=== PATIENT | male | born 1965 | race Caucasian/White ===

== ENCOUNTER 2025-02-07 19:53 | Emergency (ER) | payer OTHER, SELFPAY ==
--- NOTE | ~2025-02-07 | XR_ITS ---
Left elbow Technique: AP, oblique, and lateral views were obtained. Clinical History: Pain Findings: No acute fracture or dislocation is seen. Osseous alignment is anatomic. Joint spaces are p reserved. There is no displacement of the fat pads, and no evidence of joint effusion. There is exten sive subcutaneous soft tissue edema, especially posteriorly. Impression: Diffuse soft tissue edema, especially posteriorly. No osseous or articular abnormality. Reviewed, dictated and finalized at location M. Impression: Diffuse soft tissue edema, especially posteriorly. No osseous or articular abnormality.
--- OUTSIDE RECORDS SUMMARY | 2025-02-07 19:55 | XMS_ITS | Clinical Summary ---
Author Organization [employer] [id number] [facility] Address [address] [place] [address] Care Team Providers Care Mercury Washer Name Role Phone Unavailable Primary Care Provider Unavailabl e Allergies No known active allergies Medications irbesartan (AVAPRO) 150 mg tablet Take 150 mg by mouth daily. Active atorvastatin (LIPITOR) 10 mg tablet Take 10 mg by mouth daily. Active doxycycline hyclate (VIBRAMYCIN) 50 mg Capsule Take 50 mg by mouth daily. Active Social History Tobacco Use Types Packs/Day Years Used Date Smoking Tobacco: Never Smokeless Tobacco: Current Chew Alcohol Use Standard Drinks/Week Comments Yes 0 (1 standard drink = 0.6 oz pur e alcohol) 2 beers daily Sex and Gender Information Value Date Recorded Sex Assigned at Not on file Legal Sex Male 11:15 PM CDT Gender Identity Not on file Sexual Orientation Not on file Last Filed Vital Signs Vital Sign Reading Time Taken Comments Blood Pressure 148/102 05/24/2022 2:45 PM CDT Pulse 57 05/24/2022 2:45 PM CDT Temperature 36.6 C (97.9 F) 05/24/2022 2:28 PM CDT Respiratory Rate 17 05/24/2022 2:45 PM CDT Oxygen Saturation 99% 05/24/2022 2:45 PM CDT Inhaled Oxygen Concentration - - Weight 78.5 kg (173 lb) 05/24/2022 1:37 PM CDT Height 170.2 cm (5' 7 ) 05/16/2022 8:28 AM CDT Body Mass Index 27.1 05/16/2022 8:28 AM CDT Plan of Treatment Health Maintenance Due Date Last Done Comments HEPATITIS B VACCINES (1 of 3 - 19+ 3-dose series) 1984 10/27/2000, 06/09/2000, 04/25/2000 DTAP/TDAP/TD VACCINES (1 - Tdap) 04/05/2009 04/04/20 09 FIT-DNA Q 3 years 2010 FIT/FOBT Q 1 year 2010 Flex Sig/CT Colonography Q 5 years 2010 ZOSTER VACCINE (1 of 2) 2015 INFLUENZA VACCINE (#1) 2024 COLORECTAL SCREENING 06/07/2029 06/07/2022, 05/24/2022, 05/24/2022, Additional history exists Colorectal Cancer Screening 06/07/2029 Procedures Procedure Name Priority Date/Time Associated Diagnosis Comments COLONOSCOPY REPORT 06/07/2022 1: 58 PM CDT from Last 3 Months or Most Recently Relevant to Health Maintenance Results * COLONOSCOPY REPORT (06/07/2022 1:58 PM CDT) Narrative Procedure Note Rigoberto Gray MD - 06/07/2022 1:58 PM CDT [facility] Endoscopy Patient Name: Pedro Red Procedure Date: 05/24/2022 Date of : 1965 Attending MD: Rigoberto Gray MD, Procedure: Colonoscopy Indications: High risk colon cancer surveillance: Personal history of colonic polyps Providers: Rigoberto Gray MD Referring MD: Medicines: Monitored Anesthesia Care Complications: No immediate complications. Procedure: Informed consent was obtained for the procedure, including moderate sedation after risks were discussed. Based on the pre-procedure assessment, including review of the patient's medical history, medications, allergies, and review of systems, the patient was deemed to be an appropriate candidate for sedation. A timeout was performed. Continuous ECG monitoring, pulse oximetry, blood pressure monitoring, and direct observation were performed. The Colonoscope was introduced through the anus and advanced to the cecum, identified by appendiceal orifice and ileocecal valve. The colonoscopy was performed without difficulty. The patient tolerated the procedure well. The quality of the bowel preparation was good. The quality of the bowel preparation was evaluated using the BBPS ([place] Bowel Preparation Scale) with scores of: Right Colon = 3, Transverse Colon = 3 and Left Colon = 3 (entire mucosa seen well with no residual staining, small fragments of stool or opaque liquid). The total BBPS score equals 9. Findings: The perianal and digital rectal examinations were normal. A diminutive polyp was found in the descending colon. The polyp was sessile. The polyp was removed with a cold snare. Resection and retrieval were complete. The exam was otherwise without abnormality on direct and retroflexion views. Impression: - One diminutive polyp in the descending colon, removed with a cold snare. Resected and retrieved. - The examination was otherwise normal on direct and retroflexion views. Recommendation: - Discharge patient to home (with escort). - Await pathology results. - Repeat colonoscopy in 7 years for surveillance based on pathology results. Procedure Code(s): --- Professional --- 14728, Colonoscopy, flexible; with removal of tumor(s), polyp(s), or other lesion(s) by snare technique CPT copyright 2020 [employer]. All rights reserved. The codes documented in this report are preliminary and upon certified procedural coder review may be revised to meet current compliance requirements. Rigoberto Gray MD 05/24/2022 2:46:15 PM This report has been signed electronically. Number of Addenda: [id number] [place] [address] Rigoberto Gray MD GI PROCEDURE ORDERABLES Final Result from Last 3 Months or Most Recently Relevant to Health Maintenance Insurance [facility] OPEN ACCESS HMO
--- OUTSIDE RECORDS SUMMARY | 2025-02-07 19:55 | XMS_ITS | Continuity of Care Document ---
Author Organization [facility] Address [address] [place] [address] Phone Care Team Providers Care Home Support Worker Name Role Phone Dow OD, Vinny Unavailable Unavailable Procedures Procedure Date Eye Exam, New Patient CL Replacement - Vistakon Disp W/BW Soft Tax - Medical Refraction Advance Directives Directive Yes / No Effective Date File Name No Information Encounters Encounter Description Practice Location Reason(s) For Visit Diagnoses Date Provider Providers Copied on Encounter Merged with [facility], [address], [place], [place], [id number], [place] tel:[phone] [facility] No Information [address] OD Vinny. [address] , [address], [place], [address], [place]. tel:[phone] Family History Family Member Type Diagnosis Age At Onset No Information Payers Payer name Insurance type Covered alliance party ID Authoriza tiarabella(s) BCBS [place] Out Of [place] [id number] Social History Type Description Quantity Date Captured Comments Sex Male Smoking Status No Information Chief Complaint And Reason For Visit No Information Reason For Referral Reason For Referral No Information History Of Present Illness Encounter Date Complaint History Of Prese nt Illness No Information Functional Status Date Functional Assessmen t No Information Instructions Date Instruction Additional Infor mation No Information Assessments Type Assessment Date No Information Patient Care Teams Name Effective Dates (start - stop) Status Members No Information
--- OUTSIDE RECORDS SUMMARY | 2025-02-07 19:56 | XMS_ITS | Clinical Summary ---
Author Organization [facility] Address [address] [place] [address] Care Team Providers Care Retail Mortgage Banker Name Role Phone Unavailable Primary Care Provider Unavailabl e Source Comments [facility],non-owned Affiliates and Associated Physician Practices is amultiple site organization consisting of ambulatory clinics and hospital sitesin [place], [place], [place] and [place]. This disclosure is being madepursuant to the Care Everywhere program and may not contain all information available regarding this patient. Last updated 18.[facility] Allergies No known active allergies Medications * Be aware that medications may not be up to date on this document. Alwaysverify current medications with the patient. irbesartan (AVAPRO) 150 MG tablet 8 Active atorvastatin (Lipitor) 10 MG tablet Take 1 (one) tablet by mouth once daily 8 Active atovaquone-prog uanil (Malarone) 250-100 MG tablet PLEASE SEE ATTACHED FOR DETAILED DIRECTIONS 3 Active azithromycin (Zithromax) 500 MG tablet TAKE 1 TABLET BY MOUTH ONCE DAILY NEEDED FOR TRAVELERS DIARRHEA 3 Active diphenoxylate-a tropine (Lomotil) 2.5-0.025 MG tablet PLEASE SEE ATTACHED FOR DETAILED DIRECTIONS 3 Active doxycycline hyclate (Vibramycin) 50 MG capsule Take 1 (one) capsule by mouth once daily Active neomycin-polymy suzy-dexameth (Maxitrol) ophthalmic suspension INSTILL ONE DROP INTO BOTH EYES THREE TIMES DAILY FOR 1 WEEK, THEN ONCE DAILY 3 Active traMADol (Ultram) 50 MG tablet Active fluorouracil (Efudex) 5 % creamIndication s:Actinic keratosis Apply to the eyebrows, nose, and cheeks twice daily for 2 weeks then STOP. Avoid eyes. Wash hands after application. Keep out of reach of children and pets. 40 g 4 Active Active Problems Problem Noted Date Diagnosed Date Multiple benign melanocytic nevi of upper and lower extremities and trunk 01/11/2021 Assessment & Plan (01/11/2021 10:19 AM CDT): - Benign, reassurance, has some atypical nevi but overall regularly irregular on current clinical exam - Counseled on importance of daily sun protection (Broad spectrum, SPF >30), monthly self skin exams - Reviewed ABCDEs of melanoma History of nonmelanoma skin cancer 01/10/2021 Assessment & Plan (01/11/2021 10:19 AM CDT): - No signs of local recurrence - Encouraged monthly self skin exams - Counseled on importance of daily sun protection (Broad spectrum, SPF >30), - Sun screen recommendations reviewed Neoplasm of uncertain behavior of skin Assessment & Plan (01/10/2021 2:25 PM CDT): - R sabianism, L jawline r/o BCC - Shave Biopsy (see procedure note) - Post-biopsy handout given - Wound care instructions reviewed - Will call patient with biopsy results. If intervention is indicated, will make arrangements at that time - Discussed Mohs surgery at likely treatment option Actinic skin damage 01/10/2021 Assessment & Plan (01/10/2021 2:04 PM CDT): - Chronic - Extensive lesions associated with sun damage and increased risk of skin cancer - Reviewed concerning signs for development of skin cancer - Counseled on importance of daily sun protection, recommend OTC broad spectrum, SPF >30 - Advised monthly self skin exams Family History Medical History Relation Name Comments CVA Neg Hx Cancer - Breast Neg Hx Cancer - Other Neg Hx Cancer - Skin, Melanoma Neg Hx Cancer - Skin, Non Melanoma Neg Hx Eczema Neg Hx Hemophilia Neg Hx Social History Tobacco Use Types Packs/Day Years Used Date Smoking Tobacco: Never Smokeless Tobacco: Never Sex and Gender Information Value Date Recorded Sex Assigned at Not on file Legal 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 Gender Identity Not on file Sexual Orientation Not on file Last Filed Vital Signs Vital Sign Reading Time Taken Comments Blood Pressure 110/74 01/29/2021 10:20 AM CDT Pulse 70 01/29/2021 10:20 AM CDT Temperature - - Respiratory Rate - - Oxygen Saturation - - Inhaled Oxygen Concentration - - Weight 72.6 kg (160 lb) 01/29/2021 8:10 AM CDT Height 170.2 cm (5' 7 ) 01/29/2021 8:10 AM CDT Body Mass Index 25.06 01/29/2021 8:10 AM CDT Plan of Treatment Health Maintenance Due Date Last Done Comments COLOGUARD (AGES 45-75) - COL ON CA SCREENING [address] COLONOGRAPHY - COLON CA SCREENING 1965 FIT - COLON CA SCREENING 1965 FLEX SIG - COLON CA SCREENING 1965 HIV SCREENING 1980 HEPATITIS C SCREENING 11/25/1983 DTAP/TDAP/TD VACCINES (1 - Tdap) 1984 HEPATITIS B VACCINE (1 of 3 - 19+ 3-dose series) 1984 PNEUMOCOCCAL VACCINE 50+ (1 of 1 - PCV) 2015 ZOSTER VACCINE (1 of 2) 2015 COVID-19 VACCINE (2 - 2023-2 5 season) 2024 09/26/2022 DEPRESSION SCREENING 10/13/2024 INFLUENZA VACCINE (Season Ended) 2025 09/26/20 22 COLONOSCOPY - COLON CA SCREENING 05/24/2032 05/24/20 22 Colorectal Cancer Screening 05/24/2032 HIB VACCINE Aged Out No longer eligi ble based on patient's age to complete this topic HPV VACCINE Aged Out No longer eligi ble based on patient's age to complete this topic MENINGOCOCCAL (Group B) VACC INE SHARED DECISION-MAKING Aged Out No longer eligibl e based on patient's age to complete this topic MENINGOCOCCAL GROUPS A/C/Y/W VACCINE Aged Out No longer eligible b ased on patient's age to complete this topic Insurance [facility]
--- OUTSIDE RECORDS SUMMARY | 2025-02-07 19:56 | XMS_ITS | Encounter Summary ---
Author Organization [facility] Address [address] [place] [address] Care Team Providers Care Application Development Consultant Name Role Phone Unavailable Primary Care Provider Unavailabl e Encounter Details Date Type Department Care Team (Late st Contact Info) Description 05/07/2024 Telephone [facility] - Dermatology [address] [place] [address], [place] [phone] Samy Drake MD [address] [place] [address] 3 [place] [id number] Social History Tobacco Use Types Packs/Day Years Used Date Smoking Tobacco: Never Smokeless Tobacco: Never Sex and Gender Information Value Date Recorded Sex Assigned at Not on file Legal Sex Male 1: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 * Telephone Encounter - Mk Hanna - 05/07/2024 10:15 AM CDT Booked patient with Dr. Drake for fbse 06/02/24 at 9:00 Left message with patient. documented in this encounter Plan of Treatment Not on file documented as of this encounter Visit Diagnoses Not on filedocumented in this encounter
--- OUTSIDE RECORDS SUMMARY | 2025-02-07 19:56 | XMS_ITS | Encounter Summary ---
Author Organization [facility] Address [address] [place] [address] Care Team Providers Care Human Resources Designate Name Role Phone Laura Aldrich MD Primary Care Provider [phone] Encounter Details Date Type Department Care Team (Latest Contact Info) Description 08/02/2024 MyChart Message Enc [facility] [place] [address] [address] [place], [place] [id number] Laura Aldrich MD [address] [place] [address] [address] [place], [place] [phone] updated BP report Social History Tobacco Use Types Packs/Day Years Used Date Smoking Tobacco: Former Cigarettes 1 986 - 10/13/2019 Cigars Smokeless Tobacco: Never Comments:Occasional; child care counselor ed by Dr. Aldrich. Alcohol Use Standard Drinks/Week Comments Yes 16.7 (1 standard drink = 0.6 oz pure alcohol) PHQ-2 Answer Date Recorded Patient Health Questionnaire-2 Score 0 06/28/2024 Sex and Gender Information Value Date Recorded Sex Assigned at Male 01/20/2025 2:17 PM CDT Legal Sex Male 2:56 PM CDT Gender Identity Male 01/20/2025 2:17 PM CDT Sexual Orientation Straight 01/20/2025 2: 17 PM CDT documented as of this encounter Plan of Treatment Upcoming Encounters Date Type Department Care Team (Late st Contact Info) Description 02/08/2025 4:20 PM CDT Office [facility] [address] [place] [address] Laura Aldrich MD [address] [facility] [address] [place] [address] documented as of this encounter Visit Diagnoses Not on filedocumented in this encounter Care Teams Human Resources Designate Relationship Specialty Start Date End Date Laura Aldrich MD [address] [facility] [address] [place] [address] PCP - General INTERNAL MEDICINE 05/06/24 documented as of this encounter
--- OUTSIDE RECORDS SUMMARY | 2025-02-07 19:56 | XMS_ITS | Clinical Summary ---
Author Organization [facility] Address [address], [facility] [address] [place] [address] Phone Care Team Providers Care Blueprint Maker Name Role Phone Laura Aldrich MD Primary Care Provider [phone] Bravo Weathers DO Unavailable [phone] Allergies No known active allergies Medications losartan-hydroc hlorothiazide (HYZAAR) 50-12.5 MG Tablet Take 1 Tablet by mouth daily. 08/06/2024 Active doxycycline hyclate (VIBRAMYCIN) 50 MG Capsule Take 50 mg by mouth daily. Active atorvastatin (LIPITOR) 10 MG Tablet Take 10 mg by mouth daily. 10/13/2017 Active aspirin EC 81 MG Tablet Delayed Response Take 81 mg by mouth daily. Active fluorometholone (FML) 0.1 % Suspension INSTILL 1 DROP INTO EACH EYE TWICE DAILY NEEDED 08/11/2024 Active Active Problems Problem Noted Date Diagnosed Date HTN (hypertension) 09/21/2024 Elevated blood pressure reading 08/24/2024 Encounters Date Type Department Care Team Description 01/25/2025 10:45 AM CDT Lab [facility] [address] [address] Lab, Cc [facility] Thrombocytosis 01/25/2025 Travel from Last 3 Months Family History Medical History Relation Name Comments Prostate Cancer Father Ovarian Cancer Mother Relation Name Status Comments Child 1 Alive Child 2 Alive Father Alive Mother Alive Sister Alive Social History Tobacco Use Types Packs/Day Years Used Date Smoking Tobacco: Never Smokeless Tobacco: Never Tobacco Cessation:Counseling Given: Not Answered Alcohol Use Standard Drinks/Week Comments Yes 2 (1 standard drink = 0.6 oz pur e alcohol) nightly Sex and Gender Information Value Date Recorded Sex Assigned at Not on file Legal Sex Male 1:43 PM INSPECTOR WATER POLLUTION CONTROL Gender Identity Not on file Sexual Orientation Not on file Last Filed Vital Signs Vital Sign Reading Time Taken Comments Blood Pressure 160/92 11/02/2024 7:55 AM INSPECTOR WATER POLLUTION CONTROL Pulse 81 11/02/2024 7:55 AM INSPECTOR WATER POLLUTION CONTROL Temperature 36.6 C (97.8 F) 11/02/2024 7:55 AM INSPECTOR WATER POLLUTION CONTROL Respiratory Rate 18 11/02/2024 7:55 AM INSPECTOR WATER POLLUTION CONTROL Oxygen Saturation 81% 11/02/2024 7:55 AM INSPECTOR WATER POLLUTION CONTROL Inhaled Oxygen Concentration - - Weight 81.3 kg (179 lb 3.2 oz) 11/02/2024 7:55 A M INSPECTOR WATER POLLUTION CONTROL Height 170.2 cm (5' 7 ) 11/02/2024 7:55 AM INSPECTOR WATER POLLUTION CONTROL Body Mass Index 28.07 11/02/2024 7:55 AM INSPECTOR WATER POLLUTION CONTROL Plan of Treatment Upcoming Encounters Date Type Department Care Team (Late st Contact Info) Description 02/08/2025 8:30 AM CDT Lab [facility] [address] [id number] Lab, Cc [facility] 05/03/2025 8:00 AM CDT Office Visit [facility] [address] [phone] Bravo Weathers, DO [address] [place] [phone] 05/03/2025 8:00 AM CDT Lab [facility] [address] [id number] Lab, Cc [facility] Health Maintenance Due Date Last Done Comments Cologuard 2015 Immunochemical Fecal Occult Blood 2015 Zoster Immunization (1 of 2) 2015 PSA Discussion 2020 Colonoscopy 05/24/2032 05/24/2022, 05/24/2022 Colorectal Cancer Screening 05/24/2032 Respiratory Syncytial Virus (RSV) Immunization (Adult) (1 - 1-dose 75+ series) 2040 05/24/2022, 05/24/2022 Meningococcal Immunization (ACWY) Aged Out 04/25/2000 No longer eligible based on patient's age to complete this topic Hepatitis B Immunization Completed 001, 06/09/2000, 04/25/2000 TdaP Immunization Completed 07/23/2023 Influenza Immunization Completed , 06/20/2023, 09/26/2022, Additional history exists Hepatitis C Virus (HCV) Screening Completed 07/12/2024 Pneumococcal Immunization (50+ years) Completed 01/03/2025 Pneumococcal Immunization Combined Discontinued 01/03/2025 SARS-COV-2 Immunization Completed 01/04/20 25, 07/09/2024, 06/30/2023, Additional history exists Rotavirus Immunization Aged Out No lo nger eligible based on patient's age to complete this topic Procedures Procedure Name Priority Date/Time Associated Diagnosis Comments COMPLETE BLOOD COUNT (CBC) WITH DIFF Routine 01/25/2025 10:40 AM CDT Thrombocytosis LACTATE DEHYDROGENASE (LD) Routine 01/25/2025 10:40 AM CDT Thrombocytosis from Last 3 Months Results * (ABNORMAL) LACTATE DEHYDROGENASE (LD) (01/25/2025 10:40 AM CDT) LDH 139(L) 140 - 271 U/L [facility] Blood 01/25/2025 10:4 0 AM CDT Narrative [facility] - 01/25/2025 11:28 AM CDT Release to patient->Immediate us Bravo Weathers DO CHEMISTRY ORDERABLES Final Res ult [facility] [facility] [place] [address], [place] [phone] * (ABNORMAL) COMPLETE BLOOD COUNT (CBC) WITH DIFF (01/25/2025 10:40 AM CDT) WBC 9.1 4.0 - 10.0 10*3/uL [facility] HGB 16.0 13.7 - 17.5 g/dL [facility] HCT 47.8 40.1 - 51.0 % [facility] PLT 453(H) 163 - 369 10*3/uL [facility] MPV 8.9(L) 9.4 - 12.4 fL [facility] RBC 5.11 4.63 - 6.08 10*6/uL [facility] MCV 94 79 - 95 fL [facility] MCH 31.3 25.6 - 32.2 pg [facility] [facility] MCHC 33.5 32.2 - 36.5 g/dL [facility] RDW 14.3 11.6 - 14.4 % [facility] Absolute Neutrophil Count 7,173 cells/uL [facility] Absolute Seg Count 7,173(H) 1,440 - 6,600 cells/uL [facility] Absolute Lymph Count 545(L) 760 - 4,000 cells/uL [facility] Absolute [place] Count 817 160 - 1,200 cells/uL [facility] Absolute Eos Count 454(H) 0 - 300 cells/uL [facility] Segmented Neutrophils 79(H) 36 - 66 % [facility] Lymphocytes 6(L) 19 - 40 % [facility] Monocytes 9 4 - 12 % [facility] Eosinophils 5(H) 0 - 3 % [facility] Myelocytes 1 0 - 2 % [facility] WBC Estimate Normal [facility] E[facility]RICAL [facility] Platelet Estimate High [facility] ELECTRICAL ENGINE[facility]ING [facility] RBC Morphology Normal [facility] Blood 01/25/2025 10:4 0 AM CDT Narrative [facility] - 01/25/2025 11:55 AM CDT Release to patient->Immediate us Bravo Weathers DO HEMATOLOGY ORDERABLES Final Re sult [facility] [facility] [address] [place] [address], from Last 3 Months Insurance [facility] Care Teams Blueprint Maker Relationship Specialty Start Date End Date Laura Aldrich MD [address] [facility] [address] [place] [address] PCP - General Internal Medicine 08/16/24 Bravo Weathers DO [address] [place] [phone] Consulting Physician Oncology 08/16/24
--- OUTSIDE RECORDS SUMMARY | 2025-02-07 19:56 | XMS_ITS | Data Portability ---
Author Organization [place] - [facility], Main Office Address [address] [place] [address] Care Team Providers Care Asphalt Spreader Name Role Phone PRESTON BHANDARI Primary Care Provider PRESTON BHANDARI Referring Provider Assessment Encounter Date Assessment Date Assessment LastModified by Organization Details LastModified Time 04/14/2023 04/14/2023 Patient presents ankle pain left. The pain for the most part has resolved interestingly his MRI should scan shows a good size osteochondral defect lesion it is not bothering him at this time so I told him it best to leave it alone. I recommended avoiding impact loading if at all possible however he is completely pain free and is asymptomatic at this point. If he gets worse or changes we will re-evaluate at next step would be an MRI scan due to see if the lesion is cracked or the extent of the lesion. He can return to normal activity slowly. rena Not available 04/14/2023 11:30:38 Plan of Treatment Reminders Order Date Submit Date Provider Last Modified By Organization Details Last Modified Time Details Appointments None recorded. Lab CBC w/ auto diff 023 023 [facility] (Lab), [address] [place], [address], 3 01:00:04 CMP, serum or plasma 023 023 [facility] (Lab), [address] [place], [address], 3 01:00:04 lipid panel, serum 023 023 [facility] (Lab), [address] [place], [address], 3 01:00:04 HbA1c (hemoglob in A1c), blood 023 023 [facility] (Lab), [address] [place], [address], 3 01:00:04 uric acid, serum or plasma [address] (Lab), [address] [place], [address], 3 12:40:38 Referral None recorded. Procedures None recorded. Surgeries None recorded. Imaging XR, ankle, 3 or more view 023 023 JULIA Not available 3 15:41:22 Medication Orders Medrol (Jayesh) 4 mg tablets in a dose pack 023 023 [id number] [facility] [id number] [facility], [address] [place], [address], 3 10:25:37 Patient TargetsNo targets recorded. Patient InstructionsNo instructions recorded. Reason for Referral None Reported. Results Created Date Observation Date Name Description Value Unit Range Abnormal Flag Note LastModifiedBy Organization Detail LastModifiedTime 04/19/2004/20/2021 PSA, TOTAL PSA, total 1.9 NG/mL < or = 4.0 normal The total PSA value from this assay syste m is stand ardiz ed again st the WHO stand federico. The test resul t will be appro ximat khloe 20% lower when galdino red to the equim olar- stand ardiz ed total PSA (Tinsley man Coult er). Galdino rison of seria l PSA resul ts shoul d be inter prete d with this fact in mind. This test was perfo rmed using the Sieme ns chemi lumin escen t metho d. Value s obtai jina from diffe rent assay metho ds canno t be used inter flowers eably . PSA level s, regar dless of value , shoul d not be inter prete d as absol alexi evide nce of the prese nce or absen ce of disea se. Not Available [facility] [address] [address] [place], [address], 04/20/2021 09:13:17 04/19/2004/20/2021 COMPR EHENS GIORGIO METAB OLIC PANEL glucose 103 mg/dL 65-99 high Fasti ng refer ence inter regina For someo ne witho ut known diabe mark, a gluco se value betwe en 100 and 125 mg/dL is consi stent with predi abete s and shoul d be confi rmed with a follo w-up test. Not Available [address] [address] [place], [address], 04/20/2021 09:13:16 04/19/2004/20/2021 COMPR EHENS GIORGIO METAB OLIC PANEL urea nitrogen (BUN) 7 mg/dL 7-25 normal Not Available [address] [address] [place], [address], 04/20/2021 09:13:16 04/19/2004/20/2021 COMPR EHENS GIORGIO METAB OLIC PANEL creatinine 0.72 mg/dL 0.70-1 .33 normal For patie nts >49 years of age, the refer ence limit for Creat inine is appro ximat khloe 13% highe r for peopl e ident ified as Afric an-Am bk n. Not Available [facility] [address] [address] [place], [address], 04/20/2021 09:13:16 04/19/2004/20/2021 COMPR EHENS GIORGIO METAB OLIC PANEL eGFR non-afr. senegalese 105 mL/mi n/1.7 3m2 > or = 60 normal Not Available [facility] [address] [address] [place], [address], 04/20/2021 09:13:16 04/19/20 21 04/20/2021 COMPR EHENS GIORGIO METAB OLIC PANEL eGFR 122 mL/mi n/1.7 3m2 > or = 60 normal Not Available [address], [address], 04/20/2021 09:13:16 04/19/20 21 04/20/2021 COMPR EHENS GIORGIO METAB OLIC PANEL BUN/creatini ne ratio not applic able (calc ) 6-22 Not Available [address], [address], 04/20/2021 09:13:16 04/19/20 21 04/20/2021 COMPR EHENS GIORGIO METAB OLIC PANEL sodium 134 mmol/ L 135-14 6 low Not Available [address], [address], 04/20/2021 09:13:16 04/19/20 21 04/20/2021 COMPR EHENS GIORGIO METAB OLIC PANEL potassium 4.7 mmol/ L 3.5-5. 3 normal Not Available [address], [address], 04/20/2021 09:13:16 04/19/20 21 04/20/2021 COMPR EHENS GIORGIO METAB OLIC PANEL chloride 96 mmol/ L 98-110 low Not Available [address], [address], 04/20/2021 09:13:16 04/19/20 21 04/20/2021 COMPR EHENS GIORGIO METAB OLIC PANEL carbon dioxide 27 mmol/ L 20-32 normal Not Available [address], [address], 04/20/2021 09:13:16 04/19/20 21 04/20/2021 COMPR EHENS GIORGIO METAB OLIC PANEL calcium 10.7 mg/dL 8.6-10 .3 high Not Available [facility] [address], [address], 04/20/2021 09:13:16 04/19/20 21 04/20/2021 COMPR EHENS GIORGIO METAB OLIC PANEL protein, total 6.7 g/dL 6.1-8. 1 normal Not Available [facility] [address], [address], 04/20/2021 09:13:16 04/19/20 21 04/20/2021 COMPR EHENS GIORGIO METAB OLIC PANEL albumin 4.7 g/dL 3.6-5. 1 normal Not Available [address], [address], 04/20/2021 09:13:16 04/19/2004/20/2021 COMPR EHENS GIORGIO METAB OLIC PANEL globulin 2.0 g/dL_ (calc ) 1.9-3. 7 normal Not Available [facility] [address], [address], 04/20/2021 09:13:16 04/19/2004/20/2021 COMPR EHENS GIORGIO METAB OLIC PANEL albumin/glob ulin ratio 2.4 (calc ) 1.0-2. 5 normal Not Available [facility] [address], [address], 04/20/2021 09:13:16 04/19/2004/20/2021 COMPR EHENS GIORGIO METAB OLIC PANEL bilirubin, total 1.6 mg/dL 0.2-1. 2 high Not Available [facility] [address], [address], 04/20/2021 09:13:16 04/19/2004/20/2021 COMPR EHENS GIORGIO METAB OLIC PANEL alkaline phosphatase 29 U/L 35-144 low Not Available [facility] [address] [place], [address], 04/20/2021 09:13:16 04/19/20 21 04/20/2021 COMPR EHENS GIORGIO METAB OLIC PANEL AST 26 U/L 10-35 normal Not Available [address], [address], 04/20/2021 09:13:16 04/19/20 21 04/20/2021 COMPR EHENS GIORGIO METAB OLIC PANEL ALT 25 U/L 9-46 normal Not Available [address], [address], 04/20/2021 09:13:16 04/19/20 21 04/20/2021 LIPID PANEL , STAND FEDERICO cholesterol, total 236 mg/dL <200 high Not Available [address], [address], 04/20/2021 09:13:16 04/19/20 21 04/20/2021 LIPID PANEL , STAND [place] HDL cholesterol 90 mg/dL > or = 40 normal Not Available [address], [address], 04/20/2021 09:13:16 04/19/20 21 04/20/2021 LIPID PANEL , STAND [place]ER[place] triglyceride s 56 mg/dL <150 normal Not Available [address], [address], 04/20/2021 09:13:16 04/19/20 21 04/20/2021 LIPID PANEL , STAND [place]ER[place] LDL-choleste rol 131 mg/dL _(ryan c) high Refer ence range : <100 Xavier able range <100 mg/dL for prima ry preve ntion ; <70 mg/dL for patie nts with CHD or diabe tic patie nts with > or = 2 CHD risk facto rs. LDL-C is now calcu lated using the Heide n-Hop kins reta de la vega, which is a valid ated novel metho d provi elba kelsy r accur acy than the Fried amaris equat ion in the estim ation of LDL-C . Heide n SS et al. GLADYS. 2013; 310(1 9): 2061- 2068 (http ://ed ucati on.Qu Zainab medinaFocus Media. com/f aq/FA Q164) Not Available [facility] [address] [address], [place], [address], 04/20/2021 09:13:16 04/19/20 21 04/20/2021 LIPID PANEL , STAND FEDER[place] chol/HDLC ratio 2.6 (calc ) <5.0 normal Not Available [facility] [address] [address], [place], [address], 04/20/2021 09:13:16 04/19/20 21 04/20/2021 LIPID PANEL , STAND [employer]ER[employer] non HDL cholesterol 146 mg/dL _(ryan c) <130 high For patie nts with diabe mark plus 1 major ASCVD risk facto r, treat ing to a non-H DL-C goal of <100 mg/dL (LDL- C of <70 mg/dL ) is consi nacho chandra n. Not Available [facility] [address] [address], [place], [address], 04/20/2021 09:13:16 03/26/2003/26/2023 XR, ankle , 3 or more view No observ ation record ed. [email or web address] [facility] [address] [place], [address], 04/03/2023 15:47:28 Result Notes None recorded. Problems Name Problem SNOMED Code Status Onset Date Resolution Date Notes Provider Name and Address Organization Details Recorded Time Raynaud's disease 496596643 Active Not Available [facility] 3 17:10:57 Hypertensi ve disorder 13602925 Active Not Available [facility] 3 17:10:57 Rosacea 206450013 Active 2017 Not Available [facility] 3 17:10:57 History of malignant neoplasm of skin 561992752 Active 2020 Not Available [facility] 3 17:10:57 Swollen ankle region 913728332 Active 2022 Not Available [facility] 3 17:10:57 Prediabete s 751810732 Active 2022 Not Available [facility] 3 17:10:57 Injury of left ankle 6749120869562 9104 Active 2022 Not Available [facility] 3 17:10:57 Pain of left ankle joint 3553158037414 9103 Active 2022 Not Available [facility] 3 17:10:57 Problem Notes None recorded. Procedures Surgical History Date Name Laterality Status Provider Name and Address Organization Details Recorded Time Tonsillectomy completed Not Available [facility] 12/11/2022 08:43:42 Hernia Repair completed Not Available [facility] 12/11/2022 08:43:42 Imaging Results Imaging Date Name Status LastModified by Organiz ation Details LastModified Time 03/26/2023 XR, ankle, 3 or more view completed [email or web address] [place], [address], 04/03/2023 15:47:28 Procedure Notes None recorded. Medical Equipment None Reported. Allergies No known drug allergies Medications Name Sig Start Date Stop Date Status Note LastModified by Organization Details LastModified Time atorvastati n 10 mg tablet active Not Available Not Available Not Available azithromyci n 250 mg tablet 12/26 completed Not Available Not Available Not Available minocycline 100 mg capsule 12/22 completed Not Available Not Available Not Available doxycycline monohydrate 100 mg tablet TAKE 1 TABLET BY MOUTH EVERY DAY active Not Available Not Available No t Available tramadol 50 mg tablet active Not Available Not Available No t Available neomycin-po lymyxin-dex ameth 3.5 mg/mL-10,00 0 unit/mL-0.1 % eye drops 04/02 completed Not Available Not Available Not Available irbesartan 75 mg tablet TAKE 1 TABLET BY MOUTH EVERY DAY active Not Available Not Available No t Available irbesartan 150 mg tablet TAKE 1 TABLET BY MOUTH ONCE DAILY active Not Available Not Available No t Available methylpredn isolone 4 mg tablets in a dose pack TAKE 6 TABLETS ON DAY 1 DIRECTED ON PACKAGE AND DECREASE BY 1 TAB EACH DAY FOR A TOTAL OF 6 DAYS 04/14 completed Not Available Not Available Not Available amoxicillin 875 mg-jarrod m clavulanate 125 mg tablet TK 1 T PO Q 12 H 12/22 completed Not Available Not Available Not Available neomycin 3.5 mg/g-polymy suzy B 10,000 unit/g-dexa meth 0.1 % eye oint APPLY TO AFFECTED EYELIDS AT BEDTIME 04/02 completed Not Available Not Available Not Available rosuvastati n 5 mg tablet 10/29 completed Not Available Not Available Not Available GaviLyte-G 236 gram-22.74 gram-6.74 gram-5.86 gram oral solution PLEASE SEE ATTACHED FOR DETAILED DIRECTION S 04/14 completed Not Available Not Available Not Available Vitals Date Recorded Body mass index (BMI) Body height Oxygen saturation Oxygen saturation in Arterial blood by Pulse oximetry Heart rate Body temperature Body weight Systolic blood pressure Diastolic blood pressure Provider Name and Address Organization Details Last Updated DateTime 1 26.2 kg/m2 170.18 cm 97 % 97 % 90 /min 97 [degF] 92119.9 3 g 140 mm[Hg] 100 mm[Hg] Not Available [facility] 3 08:46:18 Date Recorded Body weight Body mass index (BMI) Body height Body temperature Heart rate Oxygen saturation Oxygen saturation in Arterial blood by Pulse oximetry Systolic blood pressure Diastolic blood pressure Provider Name and Address Organization Details Last Updated DateTime 3 71833.4 4 g 27.9 kg/m2 170.18 cm 98.1 [degF] 84 /min 97 % 97 % 144 mm[Hg] 96 mm[Hg] YASMIN Leiva - S [place] [facility] 3 11:48:27 Date Recorded Body height Body mass index (BMI) Body weight Body temperature Heart rate Oxygen saturation Oxygen saturation in Arterial blood by Pulse oximetry Systolic blood pressure Diastolic blood pressure Provider Name and Address Organization Details Last Updated DateTime 3 170.18 cm 27.7 kg/m2 59966.8 5 g 97.7 [degF] 92 /min 96 % 96 % 124 mm[Hg] 80 mm[Hg] Geovanna Choudhary Jarod [place] [employer] [facility] 10:43:56 Date Recorded Body height Provider Name an d Address Organization Details Last Updated DateTime 04/14/2023 170.18 cm Odilia Mckinney Jarod [place] [employer] [facility] 04/14/2023 10:25:21 Social History Question Answer Notes LastModified by Organizat ion Details LastModified Time Tobacco Smoking Status Former Smoker Rowan Mota roseline, [employer] [facility] 04/14/2023 10:18:18 What Is Your Level Of Alcohol Consumption? Moderate [id number] Information not available 12/11/2022 In The 14 Days Before Symptom Onset, Have You Had Close Contact With A Laboratory-confir med COVID-19 While That Case Was Ill? No [email or web address] Information not available 04/14/2023 In The 14 Days Before Symptom Onset, Have You Had Close Contact With A Person Who Is Under Investigation For COVID-19 While That Person Was Ill? 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 Yes [email or web address] Information not available 04/14/2023 How Much Tobacco Do You Smoke? 1 PPW [id number] Information not available 12/11/2022 Do You Participate In Social Media? Yes [email or web address] Information not available 04/14/2023 Do You Feel Stressed (tense, Restless, Nervous, Or Anxious, Or Unable To Sleep At Night)? [id number] [email or web address] Information not available 04/14/2023 How Many Years Have You Smoked Tobacco? 4 [email or web address] Information not available 04/14/2023 Sex: Unknown Functional Status None recorded. Mental Status None recorded. Family History Relationship Description Onset Age of this Age Resolved Age Notes LastModified by Organization Details LastModified Time Father Malignant neoplasm of prostate [id number] Not available 12/11/2022 08:43:43 Paternal Grandfather Malignant neoplasm of prostate [id number] Not available 12/11/2022 08:43:43 Father Heart disease [email or web address] Not available 2022 10:26:00 Medical History Condition Response CANCER: SPECIFY Y Immunizations Vaccine Type Date Status Note Provider Nam e and Address Organization Details Recorded Time Influenza, split virus, quadrivalent, PF 2 completed Not Available [facility] 12/11/2022 08:52:30 COVID-19, mRNA, LNP-S, bivalent, PF, 30 mcg/0.3 mL dose 2 completed Not Available [facility] 12/11/2022 08:52:31 typhoid, ViCPs 9 completed Not Available [facility] 12/11/2022 08:52:31 Td(adult) unspecified formulation 9 completed Not Available [facility] 12/11/2022 08:52:31 Hep B, adult 1 completed Not Available [facility] 12/11/2022 08:52:31 Hep A, adult 1 completed Not Available [facility] 12/11/2022 08:52:31 Hep B, adult 0 completed Not Available [facility] 12/11/2022 08:52:31 Hep A, adult 0 completed Not Available [facility] 12/11/2022 08:52:31 polio, unspecified formulation 0 completed Not Available [facility] 12/11/2022 08:52:31 meningococcal ACWY, unspecified formulation 0 completed Not Available [facility] 12/11/2022 08:52:31 Hep B, adult 0 completed Not Available [facility] 12/11/2022 08:52:31 Past Encounters Encounter ID Performer Location Encounter Start Date Encounter Closed Date Diagnosis/Indication Diagnosis SNOMED-CT Code Diagnosis ICD10 Code Diagnosis Note [id number] [facility] [address] [place] [address] 03/06/2021 00:00:00 03/06/2021 10:33:04 [id number] FABIOLA Sams [facility] [place] [address] 03/26/2023 11:25:41 03/26/2023 12:08:51 Swollen ankle region 340602529 R22.40 Diabetes m ellitus screening 883531627 Z13.1 Hyperlipid emia screening 011516036 Z13.220 Screening for disorder 664995440 Z13.9 [id number] Preston Crenshaw MD [facility] Family [facility] [address] [facility] [place] [address] 04/02/2023 10:39:37 04/02/2023 11:01:37 History of gout 017532883 Z87.39 Prediabetes 708205482 R7 3.03 Watch carb and exercise and weight loss. Swollen ankle region 267 387218 R22.42 Use compressio n stockings. Elevate leg [id number] Primitivo Villegas MD [facility] [address] [place] [address] 04/14/2023 10:16:26 04/14/2023 11:38:36 Pain of left ankle joint 2942713366 8005945 M25.572 Health Concerns Section Related Observation LastModified by Organization Detai ls LastModified Time None Recorded Concern Status LastModified by Organization Details LastModified Time None Recorded Advance Directives Directive None Recorded Payers Encounter Date Sequence Insurance Name Policy Number Policy Santiago Covered Member ID Santiago Member ID Guarantor Name 03/26/2023 1 [employer] [id number] Lesia Red [id number] Pedro Red 04/02/2023 1 [employer] [id number] Lesia Red [id number] 3 Pedro Red 04/14/2023 1 [employer] [id number] Lesia Red [id number] Pedro Red Notes Date Note Type Note Provider Name and Address Organization Details Recorded Time 03/26/2023 text/html red swollen ankle FABIOLA Olson [address] [facility] [facility], [facility] [address], [place], [address], [facility] [employer] 03/30/2023 16:41:04 04/02/2023 text/html Here today s/p swelling of left ankle. Saw Aston and Left ankle started swelling. It was very painful and pain has gone down. It is still swollen. It was hard to even have sheets on the ankle. No calf or leg tenderness. No hx of gout. The swelling is still present but better. Pt A1C was 6.1% making him pre diabetic. Preston Crenshaw MD [address], [facility] [address], [place], [address], [employer] [facility] 04/03/2023 06:45:44 04/14/2023 text/html Patient presents ankle pain left. Interestingly ankle pain is resolved to a large degree states he twisted it was fishing on and had fair bit of swelling and pain which has gotten better now that he is off it. Primitivo Villegas MD [address], [facility] [address], [place], [address], [employer] 04/14/2023 11:30:52
--- OUTSIDE RECORDS SUMMARY | 2025-02-07 19:56 | XMS_ITS | Encounter Summary ---
Author Organization [facility] Address [address] [place] [address] Care Team Providers Care Pot Fluxer Name Role Phone Laura Aldrich MD Primary Care Provider [phone] Encounter Details Date Type Department Care Team (Late st Contact Info) Description 10/29/2024 [facility] [place] [address] [address] [place] [address] Laura Aldrich MD [address] [place] [address] [address] [place] [address] Test results Social History Tobacco Use Types Packs/Day Years Used Date Smoking Tobacco: Former Cigarettes 1 986 - 10/13/2019 Cigars Smokeless Tobacco: Never Comments:Occasional; funeral planning counselor ed by Dr. Aldrich. Alcohol Use [...] Description 02/08/2025 4:20 PM CDT [facility] [place], [place] [address] Laura Aldrich MD [address] [facility] [address] [place] [address] documented as of this encounter Visit Diagnoses Not on filedocumented in this encounter Care Teams Pot Fluxer Relationship Specialty Start Date End Date Laura Aldrich MD [address] [facility] [address] [place] [address] PCP - General INTERNAL MEDICINE 05/06/24 documented as of this encounter
--- OUTSIDE RECORDS SUMMARY | 2025-02-07 19:56 | XMS_ITS | Encounter Summary ---
Author Organization [facility] Address [address] [place] [address] Care Team Providers Care Web Mobile Designer Name Role Phone Laura Aldrich MD Primary Care Provider [phone] Encounter Details Date Type Department Care Team (Late st Contact Info) Description 07/09/2024 MyChart Message Enc [address] [address] [address] [place] [address] Laura Aldrich MD [address] [place] [address] [address] [place] [address] Vaccinations Social History Tobacco Use Types Packs/Day Years Used Date Smoking Tobacco: Former Cigarettes 1 986 - 10/13/2019 Cigars Smokeless Tobacco: Never Comments:Occasional; rehab/pre vocational counselor ed by Dr. Aldrich. Alcohol Use [...] Description 02/08/2025 4:20 PM CDT Office Visit [address] [place], [place] [address] Laura Aldrich MD [address] [facility] [address] [place] [address] documented as of this encounter Visit Diagnoses Not on filedocumented in this encounter Care Teams Web Mobile Designer Relationship Specialty Start Date End Date Laura Aldrich MD [address] [facility] [address] [place] [address] PCP - General INTERNAL MEDICINE 05/06/24 documented as of this encounter
--- OUTSIDE RECORDS SUMMARY | 2025-02-07 19:56 | XMS_ITS | Encounter Summary ---
Author Organization [facility] Address [address] [place] [address] Care Team Providers Care Assistant Toddler Teacher Name Role Phone Laura Aldrich MD Primary Care Provider [phone] Encounter Details Date Type Department Care Team (Late st Contact Info) Description 01/03/2025 MyChart Message Enc [address] [address] [address] [place] [address] Laura Aldrich MD [address] [place] [address] [address] [place] [address] Vaccinations Social History Tobacco Use Types Packs/Day Years Used Date Smoking Tobacco: Former Cigarettes 1 986 - 10/13/2019 Cigars Smokeless Tobacco: Never Comments:Occasional; behavioral health counselor ed by Dr. Aldrich. Alcohol Use [...] Description 02/08/2025 4:20 PM CDT Office Visit [address] [place], [place] [address] Laura Aldrich MD [address] [facility] [address] [place] [address] documented as of this encounter Visit Diagnoses Not on filedocumented in this encounter Care Teams Assistant Toddler Teacher Relationship Specialty Start Date End Date Laura Aldrich MD [address] [facility] [address] [place] [address] PCP - General INTERNAL MEDICINE 05/06/24 documented as of this encounter
--- OUTSIDE RECORDS SUMMARY | 2025-02-07 19:56 | XMS_ITS | Encounter Summary ---
Author Organization [facility] Address [address] [place] [address] Care Team Providers Care Felt Finishing Supervisor Name Role Phone Laura Aldrich MD Primary Care Provider [phone] Encounter Details Date Type Department Care Team (Latest Contact Info) Description 08/11/2024 MyChart Message [facility] - [place] [address] [address] [address] [place], [place] [id number] Laura Aldrich MD [address] [place] [address] 157 [place], [place] [id number] possible platelet cause Social History Tobacco Use Types Packs/Day Years Used Date Smoking Tobacco: Former Cigarettes 1 986 - 10/13/2019 Cigars Smokeless Tobacco: Never Comments:Occasional; prenatal genetic counselor ed by Dr. Aldrich. Alcohol Use [...] Description 02/08/2025 4:20 PM CDT [facility] - [address] [place], [place] [address] Laura Aldrich MD [address] [facility] 157 [place] [address] documented as of this encounter Visit Diagnoses Not on filedocumented in this encounter Care Teams Felt Finishing Supervisor Relationship Specialty Start Date End Date Laura Aldrich MD 118[address] [facility] 157 [place] [address] PCP - General INTERNAL MEDICINE 05/06/24 documented as of this encounter
--- OUTSIDE RECORDS SUMMARY | 2025-02-07 19:56 | XMS_ITS | Encounter Summary ---
Author Organization [facility] Address [address] [place] [address] Care Team Providers Care Bulk Sausage Casing Tier Off Name Role Phone Laura Aldrich MD Primary Care Provider [phone] Encounter Details Date Type Department Care Team (Latest Contact Info) Description 07/16/2024 MyChart Message Enc [facility] - [place] [address] [address] [address] [place], [place] [address] Laura Aldrich MD [address] [place] [address] 157 [place], [place] [phone] Blood Pressure Readings Social History Tobacco Use Types Packs/Day Years Used Date Smoking Tobacco: Former Cigarettes 1 986 - 10/13/2019 Cigars Smokeless Tobacco: Never Comments:Occasional; rehabilitation services counselor ed by Dr. Aldrich. Alcohol Use [...] Description 02/08/2025 4:20 PM CDT [facility] - [address] [place], [place] [address] Laura Aldrich MD 1188 [facility] 157 [place] [address] documented as of this encounter Visit Diagnoses Not on filedocumented in this encounter Care Teams Bulk Sausage Casing Tier Off Relationship Specialty Start Date End Date Laura Aldrich MD 1188 [facility] 157 [place] [address] PCP - General INTERNAL MEDICINE 05/06/24 documented as of this encounter
--- OUTSIDE RECORDS SUMMARY | 2025-02-07 19:56 | XMS_ITS | Clinical Summary ---
Author Organization [facility] Address [address] [place] [address] Care Team Providers Care Snorkelling Instructor Name Role Phone Laura Aldrich MD Primary Care Provider [phone] Allergies No known active allergies Medications doxycycline hyclate (VIBRAMYCIN) 50 MG capsule Take 1 capsule (50 mg total) by mouth daily. Active fluorouracil (EFUDEX) 5 % cream Apply to the eyebrows, nose, and cheeks twice daily for 2 weeks then STOP. Avoid eyes. Wash hands after application . Keep out of reach of children and pets. 06/02/20 24 Active atorvastatin (LIPITOR) 10 MG tabletIndications: Mixed hyperlipidemia TAKE 1 TABLET BY MOUTH EVERY DAY 90 tablet 01/01/20 25 Active losartan-hydroCHLO ROthiazide (HYZAAR) 100-25 MG tabletIndications: Primary hypertension,Local ized edema Take 1 tablet by mouth daily. 30 tablet 2 01/21/20 25 Active losartan-hydroCHLO ROthiazide (HYZAAR) 50-12.5 MG tabletIndications: Primary hypertension TAKE 1 TABLET BY MOUTH EVERY DAY 90 tablet 12/27/19 25 025 Discontinued Active Problems Problem Noted Date Diagnosed Date Raynaud's phenomenon 08/20/2024 History of nonmelanoma skin cancer 01/10/2021 Overview (06/28/2024): Last Assessment & Plan: - No signs of local recurrence - Encouraged monthly self skin exams - Counseled on importance of daily sun protection (Broad spectrum, SPF >30), - Sun screen recommendations reviewed Actinic skin damage 01/10/2021 Overview (06/28/2024): Last Assessment & Plan: - Chronic - Extensive lesions associated with sun damage and increased risk of skin cancer - Reviewed concerning signs for development of skin cancer - Counseled on importance of daily sun protection, recommend OTC broad spectrum, SPF >30 - Advised monthly self skin exams Ocular rosacea 10/13/2017 Hypertension 10/13/2003 Encounters Date Type Department Care Team Description 01/27/2025 Telephone [facility] [address] [facility] [facility] [address] [place] [address] Laura Aldrich MD Lab Order 01/26/2025 MyChart Message Enc [facility] [address] [facility] [address] [place] [address] Laura Aldrich MD Blood test results 01/20/2025 2:00 PM CDT Office Visit [facility] [address] [place] [address] Paulina Ball, VICE PRESIDENT CORPORATE COMMUNICATIONS Edema (Kevin legs) 01/20/2025 Travel 01/18/2025 MyChart Message Enc [facility] [address] [place] [address] Laura Aldrich MD Ankle swelling 01/03/2025 Scan Osper INFO SRVCS Scanned, [facility] 01/03/2025 MyChart Message Enc [facility] [address] [place] [address] Laura Aldrich MD Vaccinations 01/01/2025 MyChart Message Enc [facility] [address] [place] [address] Laura Aldrich MD COVID Booster 12/13/2024 [facility] [address] [place] [address] Laura Aldrich MD BP still running a little high 11/28/2024 Max-Vizhart Message Enc [facility] - [place] [address] [place] [address] Laura Aldrich MD Appointment January 31 from Last 3 Months Immunizations Immunization Administration Dates Next Due Hepatitis A (Havrix 1440 El.U) 10/27/2000,1999 Hepatitis B (Generic: Adult) 10/27/2000,06/09/20 00,04/25/2000 Influenza (Generic) 11/03/2012 Influenza Adult (Generic) 07/09/2024,05/2023,09/26/2022,08/03,09/03/2016 MODERNA COVID-19 BIVALENT (6 -11), MRNA, LNP-S, PF 01/03/2025 Meningococcal (Generic) 04/25/2000 PFIZER COVID-19 BIVALENT (12 +) mRNA, LNP-S, PF, 30 MCG/0.3 ML DOSE 07/09/2024 Pneumococcal (Prevnar 20) 01/03/2025 Polio Opv (Generic) 04/25/2000 Td, Adsorbed, Preservative F ree, Adult Use, Lf Unspecified 04/04/2009 Tdap (Generic) 07/23/2023 Typhoid (Typhim ) 04/04/2009 Family History Medical History Relation Comments Cancer Father Prostate Heart Disease Father Heavy smoker Heart Disease Maternal Grandfather Vision loss Maternal Grandfather Macular deg eneration Heart Disease Maternal Grandmother Cancer Paternal Grandfather Bladder and Prostate Cancer Paternal Grandmother Breast Relation Status Comments Father Maternal Grandfather Maternal Grandmother Paternal Grandfather Paternal Grandmother Social History Tobacco Use Types Packs/Day Years Used Date Smoking Tobacco: Former Cigarettes 1 986 - 10/13/2019 Cigars Smokeless Tobacco: Never Tobacco Cessation:Counseling Given: No Comments:Occasional; counseled by Dr. Aldrich. Alcohol Use Standard Drinks/Week [...] Orientation Straight 01/20/2025 2: 17 PM CDT Last Filed Vital Signs Vital Sign Reading Time Taken Comments Blood Pressure 148/82 01/20/2025 2:45 PM CDT Pulse 66 01/20/2025 2:15 PM CDT Temperature 36.7 C (98.1 F) 01/20/2025 2:15 PM CDT Respiratory Rate 16 01/20/2025 2:15 PM CDT Oxygen Saturation 98% 01/20/2025 2:15 PM CDT Inhaled Oxygen Concentration - - Weight 82.6 kg (182 lb) 01/20/2025 2:15 PM CDT Height 170.2 cm (5' 7 ) 01/20/2025 2:15 PM CDT Body Mass Index 28.51 01/20/2025 2:15 PM CDT Plan of Treatment Upcoming Encounters Date Type Department Care Team (Late st Contact Info) Description 02/08/2025 4:20 PM CDT Office Visit [facility] - [place] [address] [address] [place], [place] [phone] Laura Aldrich MD [address] [place] [address] 157 [place] [address] Health Maintenance Due Date Last Done Comments Zoster Vaccines (1 of 2) 2015 PHQ-2 (Physician [place]) 10/13/2024 06/28/2024 COVID-19 Vaccine ( season) 2025 01/03/2025, 07/09/2024, 06/30/2023, Additional history exists Annual Physical 06/28/2025 06/28/2024 Colorectal Cancer Screening Colonoscopy (10 Years) 06/07/2032 06/07/2022 DTaP, Tdap and Td Vaccines (2 - Td or Tdap) 07/23/2033 07/23/2023, 04/04/2009 Meningococcal Vaccine Aged Out 04/25/2000 No paulina ivanna eligible based on patient's age to complete this topic Hepatitis C Completed 07/12/2024 Pneumococcal Vaccine: 50+ Years Completed 01/03/2025 Meningococcal B Vaccine Aged Out No l onger eligible based on patient's age to complete this topic RSV Immunizations Under 20 Months Aged Out No longer eligible based on patient's age to complete this topic Procedures Procedure Name Priority Date/Time Associated Diagnosis Comments HEPATITIS C ANTIBODY Routine 07/12/2024 8:10 AM CDT Annual physical exam Establishing care with new doctor, encounter for General medical exam COLONOSCOPY GENERIC (SCAN ORDER) 06/07/2022 from Last 3 Months or Most Recently Relevant to Health Maintenance Results * HEPATITIS C ANTIBODY (07/12/2024 8:10 AM CDT) HEPATITIS C AB NON-REACTI VE NON-REACT GIORGIO 07/12/2024 9:27 PM CDT [facility] Comment: ANTIBODIES TO HCV NOT DETECTED. DOES NOT EXCLUDE THE POSSIBILITY OF EXPOSURE TO HCV. 07/12/2024 8:10 AM CDT Laura Aldrich MD LABORATORY Final Result [facility] [address] [place] [address], [id number] * COLONOSCOPY GENERIC (SCAN ORDER) (06/07/2022) 06/07/2022 [facility] Scanned SCANNING Final Resu lt from Last 3 Months or Most Recently Relevant to Health Maintenance Insurance [facility] Care Teams Snorkelling Instructor Relationship Specialty Start Date End Date Laura Aldrich MD [address] [address] PCP - General INTERNAL MEDICINE 05/06/24
--- OUTSIDE RECORDS SUMMARY | 2025-02-07 19:56 | XMS_ITS | Encounter Summary ---
Author Organization [facility] Address [address] [place] [address] Care Team Providers Care Die Mechanic Name Role Phone Laura Aldrich MD Primary Care Provider [phone] Encounter Details Date Type Department Care Team (Late st Contact Info) Description 01/01/2025 MyChart Message [facility] [place] [address] [address] [place] [address] Laura Aldrich MD [address] [place] [address] 157 [place] [address] COVID Booster Social History Tobacco Use Types Packs/Day Years Used Date Smoking Tobacco: Former Cigarettes 1 986 - 10/13/2019 Cigars Smokeless Tobacco: Never Comments:Occasional; equal opportunity counselor ed by Dr. Aldrich. Alcohol Use [...] Description 02/08/2025 4:20 PM CDT [facility] - [address] [place], [place] [address] Laura Aldrich MD [address] [facility] 157 [place] [address] documented as of this encounter Visit Diagnoses Not on filedocumented in this encounter Care Teams Die Mechanic Relationship Specialty Start Date End Date Laura Aldrich MD 118[address] [facility] 157 [place] [address] PCP - General INTERNAL MEDICINE 05/06/24 documented as of this encounter
--- OUTSIDE RECORDS SUMMARY | 2025-02-07 19:56 | XMS_ITS | Encounter Summary ---
Author Organization [facility] Address [address] [place] [address] Care Team Providers Care Short Filler Bunch Machine Operator Name Role Phone Laura Aldrich MD Primary Care Provider Encounter Details Date Type Department Care Team (Late st Contact Info) Description 08/20/2024 MyChart Message Enc [place] [address] [address] [place] [address] Laura Aldrich MD [address] [place] [address] 157 [place] [address] Raynaud's Social History Tobacco Use Types Packs/Day Years Used Date Smoking Tobacco: Former Cigarettes 1 986 - 10/13/2019 Cigars Smokeless Tobacco: Never Comments:Occasional; drug and alcohol counsellor ed by Dr. Aldrich. Alcohol Use Standard [...] Description 02/08/2025 4:20 PM CDT [facility] [address] [place], [place] [address] Laura Aldrich MD 118[address] [facility] 157 [place] [address] documented as of this encounter Visit Diagnoses Not on filedocumented in this encounter Care Teams Short Filler Bunch Machine Operator Relationship Specialty Start Date End Date Laura Aldrich MD 1188 [facility] 157 [place] [address] PCP - General INTERNAL MEDICINE 05/06/24 documented as of this encounter
--- OUTSIDE RECORDS SUMMARY | 2025-02-07 19:56 | XMS_ITS | Encounter Summary ---
Author Organization [facility] Address [address] [place] [address] Care Team Providers Care Buyer Name Role Phone Laura Aldrich MD Primary Care Provider Encounter Details Date Type Department Care Team (Latest Contact Info) Description 08/07/2024 MyChart Message Enc [place] [address] [address] [place], [place] [address] Laura Aldrich MD [address] [place] [address] 157 [place], [place] [phone] losartan question Social History Tobacco Use Types Packs/Day Years Used Date Smoking Tobacco: Former Cigarettes 1 986 - 10/13/2019 Cigars Smokeless Tobacco: Never Comments:Occasional; corporate counselor ed by Dr. Aldrich. Alcohol Use [...] Description 02/08/2025 4:20 PM CDT [facility] [address] [place] [address] Laura Aldrich MD [address] [facility] [address] [place] [address] documented as of this encounter Visit Diagnoses Not on filedocumented in this encounter Care Teams Buyer Relationship Specialty Start Date End Date Laura Aldrich MD [address] [facility] 157 [place] [address] PCP - General INTERNAL MEDICINE 05/06/24 documented as of this encounter
--- OUTSIDE RECORDS SUMMARY | 2025-02-07 19:56 | XMS_ITS | Referral Summary ---
Author Organization [address] [address] Care Team Providers Care Replacer Name Role Phone Unknown, Notinfile Primary Care Provider Unavail able Encounters Date Type Department Care Team Description 02/07/2025 6:45 PM CDT Office Visit [facility] at [address] [place] [address] [address] Octavia Taylor NP Cellulitis of left elbow (Primary Dx); Elbow swelling, left from Last 3 Months Allergies No known active allergies Medications No known medications Active Problems No known active problems Social History Tobacco Use Types Packs/Day Years Used Date Smoking Tobacco: Never Assessed Sex and Gender Information Value Date Recorded Sex Assigned at Not on file 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 Gender Identity Not on file Sexual Orientation Not on file Last Filed Vital Signs Vital Sign Reading Time Taken Comments Blood Pressure 129/84 02/07/2025 7:01 PM CDT Pulse 89 02/07/2025 7:01 PM CDT Temperature 37.2 C (98.9 F) 02/07/2025 7:01 PM CDT Respiratory Rate 20 02/07/2025 7:01 PM CDT Oxygen Saturation 100% 02/07/2025 7:01 PM CDT Inhaled Oxygen Concentration - - Weight 79.5 kg (175 lb 3.2 oz) 02/07/2025 7:01 P M CDT Height - - Body Mass Index - - Plan of Treatment Not on file Insurance [facility] CHOICE PLUS [facility] HMO/PPO Address: [place] [address] Care Teams Replacer Relationship Specialty Start Date End Date Unknown, Notinfile PCP - General 02/07/25
--- OUTSIDE RECORDS SUMMARY | 2025-02-07 19:56 | XMS_ITS | Encounter Summary ---
Author Organization [facility] Address [address] [place] [address] Care Team Providers Care Remote Broadcast Technician Name Role Phone Laura Aldrich MD Primary Care Provider [phone] Encounter Details Date Type Department Care Team (Latest Contact Info) Description 12/13/2024 MyChart Message Enc [facility] [address] [address] [place] [address] Laura Aldrich MD [address] [place] [address] 157 [place], [place] [id number] BP still running a little high Social History Tobacco Use Types Packs/Day Years Used Date Smoking Tobacco: Former Cigarettes 1 986 - 10/13/2019 Cigars Smokeless Tobacco: Never Comments:Occasional; drug counselor ed by Dr. Aldrich. Alcohol Use [...] Description 02/08/2025 4:20 PM CDT [facility] [address] [place] [address] Laura Aldrich MD 1188 [facility] 157 [place] [address] documented as of this encounter Visit Diagnoses Not on filedocumented in this encounter Care Teams Remote Broadcast Technician Relationship Specialty Start Date End Date Laura Aldrich MD 1188 [facility] 157 [place] [address] PCP - General INTERNAL MEDICINE 05/06/24 documented as of this encounter
--- OUTSIDE RECORDS SUMMARY | 2025-02-07 19:56 | XMS_ITS | Encounter Summary ---
Author Organization [facility] Address [address] [place] [address] Care Team Providers Care Apprentice/Lineman Name Role Phone Unknown, Notinfile Primary Care Provider Unavail able Reason for Visit * Reason Comments Elbow Pain Left elbow pain star kiki yesterday morning. Redness and swelling has been increasing. No TYL or IBU. Took Azithromycin to help. Was in [place]. 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 Concerned for DVT, has a history of essential thrombocytopenia. Patient may also need labs/imaging/IV forcellulitis. documented in this encounter Progress Notes * Octavia Taylor NP - 02/07/2025 6:45 PM CDT Images from the original note were not included. Subjective/Objective Patient ID: Pedro Red is a 59 y.o. male. This patient has verbally consented to recording this visit in order to utilize AI technology in generating this note. Chief Complaint Elbow Pain (Left elbow pain started yesterday morning. Redness and swelling has been increasing. NoTYL or IBU. Took Azithromycin to help. Was in [facility]. ) History of Present Illness The patient, with a history of essential thrombocytopenia, presents with left elbow pain and swelling. The symptoms began after a long flight from [facility], where he was exposed to non-potable water and mosquitoes. The pain and swelling have progressively worsened, making it difficult to sleep and move the elbow. The patient has taken one dose of Azithromycin, but the symptoms have not improved. Review of Systems All other systems reviewed and are negative. Physical Exam MUSCULOSKELETAL: Elbow swollen with increased warmth. SKIN: Skin swelling extensive, almost circumferential. Possible fluctuance over the elbow. Physical Exam Vitals: 02/07/25 1901 BP: 129/84 Pulse: 89 Resp: 20 Temp: 37.2 ??C (98.9 ??F) TempSrc: Oral SpO2: 100% Weight: 79.5 kg (175 lb 3.2 oz) No results found. No past medical history on file. No current outpatient medications on file. No Known Allergies Social History Tobacco Use Smoking status: Not on file Smokeless tobacco: Not on file Substance and Sexual Activity Drug use: Not on file Sexual activity: Not on file Alcohol Use: Not on file No past surgical history on file. Procedures Assessment/Plan Results No results found for this or any previous visit (from the past 4 hours). Assessment & Plan Cellulitis of both elbows Bilateral elbow cellulitis with significant swelling and erythema, likely infectious. Oral Azithromycin was ineffective. IV antibiotics and further evaluation necessary to prevent complications. - Refer to ER for blood work and IV antibiotics. - Order x-ray of elbows to rule out osteomyelitis. - Check CBC and other relevant labs due to recent international travel. Essential thrombocythemia Essential thrombocythemia increases thrombotic risk, potentially exacerbated by recent 20-hour flight. Current symptoms suggest infection rather than thrombosis. - Discuss potential need to rule out clotting issues at ER. Diagnoses and all orders for this visit: Cellulitis of left elbow (Primary) Elbow swelling, left Disposition Treatment plan including expectations, follow up, and return precautions discussed with patient/parent, verbalizes understanding. Medication dosage, use, and potential adverse reactions discussed with patient/parent. Advised to follow up with PCP if symptoms do not resolve as expected or sooner if condition worsens. Signs/symptoms warranting ER evaluation reviewed. Patient and/or guardian was given an opportunity to ask questions, questions answered. Octavia Taylor NP documented in this encounter Plan of Treatment Not on file documented as of this encounter Visit Diagnoses Diagnosis Cellulitis of left elbow- Primary Elbow swelling, left documented in this encounter Care Teams Apprentice/Lineman Relationship Specialty Start Date End Date Unknown, Notinfile PCP - General 02/07/25 documented as of this encounter
--- OUTSIDE RECORDS SUMMARY | 2025-02-07 19:56 | XMS_ITS | Clinical Summary ---
Author Organization [address] [address] Care Team Providers Care Crime Scene Evidence Technician Name Role Phone Unknown, Notinfile Primary Care Provider Unavail able Allergies No known active allergies Medications No known medications Active Problems No known active problems Encounters Date Type Department Care Team Description 02/07/2025 6:45 PM CDT Office Visit [facility] Care at [address] [address] Octavia Taylor, BOB Cellulitis of left elbow (Primary Dx); Elbow swelling, left from Last 3 Months Social History Tobacco Use Types Packs/Day Years Used Date Smoking Tobacco: Never Assessed Sex and Gender Information Value Date Recorded Sex Assigned at Not on file 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 Gender Identity Not on file Sexual Orientation [...] Mass Index - - Plan of Treatment Health Maintenance Due Date Last Done Comments Colon Cancer Screening-Colonoscopy 1965 Depression Screening 1965 Hepatitis C Screening 1965 Prostate Cancer Screening-PSA 1965 Regular Well Visit/Exam 18-64 1983 Zoster Vaccine (1 of 2) 2015 DTaP/Tdap/Td Vaccine (2 - Td or Tdap) 07/23/2033 07/23/2023, 04/04/2009 Hepatitis B Screening Completed 10/27/2000 , 06/09/2000, 04/25/2000 Influenza Vaccine Completed 07/09/2024, , 09/26/2022, Additional history exists Pneumococcal vaccine <65 Aged Out No longer eligible based on patient's age to complete this topic Insurance [facility] [place] [address] Care Teams Crime Scene Evidence Technician Relationship Specialty Start Date End Date Unknown, Notinfile PCP - General 02/07/25
[2025-02-07 19:59] VITALS: BP 154/89; PULSE 90; RESP 16; TEMP 37; O2SAT 100
--- OUTSIDE RECORDS SUMMARY | 2025-02-08 00:11 | XMS_ITS | Encounter Summary ---
Author Organization [facility] Address [address] [place] [address] Care Team Providers Care Profiler Name Role Phone Laura Aldrich MD Primary Care Provider [phone] Encounter Details Date Type Department Care Team (Late st Contact Info) Description 01/03/2025 MyChart Message Enc [place] [address] [address] [address] [place] [address] Laura Aldrich MD [address] [place] [address] 157 [place] [address] Vaccinations Social History Tobacco Use Types Packs/Day Years Used Date Smoking Tobacco: Former Cigarettes 1 986 - 10/13/2019 Cigars Smokeless Tobacco: Never Comments:Occasional; weight loss counselor ed by Dr. Aldrich. Alcohol Use [...] Description 02/08/2025 4:20 PM CDT Office Visit [address] [place], [place] [address] Laura Aldrich MD [address] [facility] [address] [place] [address] documented as of this encounter Visit Diagnoses Not on filedocumented in this encounter Care Teams Profiler Relationship Specialty Start Date End Date Laura Aldrich MD 1188 [facility] 157 [place] [address] PCP - General INTERNAL MEDICINE 05/06/24 documented as of this encounter
--- OUTSIDE RECORDS SUMMARY | 2025-02-08 00:11 | XMS_ITS | Encounter Summary ---
Author Organization [facility] Address [address] [facility] [place] [address] Care Team Providers Care Insurance Counselor Name Role Phone Unavailable Primary Care Provider Unavailabl e Encounter Details Date Type Department Care Team (Late st Contact Info) Description 05/07/2024 Telephone [facility] - Dermatology [address] [place] [address], [place] [id number] Samy Drake MD [address] [place] [address] 3 [place] [id number] Social History Tobacco Use Types Packs/Day Years Used Date Smoking Tobacco: Never Smokeless Tobacco: Never Sex and Gender Information Value Date Recorded Sex Assigned at Not on file 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
--- OUTSIDE RECORDS SUMMARY | 2025-02-08 00:11 | XMS_ITS | Encounter Summary ---
Author Organization [facility] Address [address] [place] [address] Care Team Providers Care Lock Stitch Channeler Name Role Phone Laura Aldrich MD Primary Care Provider [phone] Encounter Details Date Type Department Care Team (Latest Contact Info) Description 08/11/2024 MyChart Message Enc [facility] [place] [address] [address] [address] [place], [place] [address] Laura Aldrich MD [address] [place] [address] 157 [place], [place] [id number] possible platelet cause Social History Tobacco Use Types Packs/Day Years Used Date Smoking Tobacco: Former Cigarettes 1 986 - 10/13/2019 Cigars Smokeless Tobacco: Never Comments:Occasional; correctional counselor/case manager ed by Dr. Aldrich. Alcohol Use Standard [...] [facility] [address] [place], [place] [address] Laura Aldrich MD 1188 [facility] 157 [place] [address] documented as of this encounter Visit Diagnoses Not on filedocumented in this encounter Care Teams Lock Stitch Channeler Relationship Specialty Start Date End Date Laura Aldrich MD 1188 [facility] 157 [place] [address] PCP - General INTERNAL MEDICINE 05/06/24 documented as of this encounter
--- OUTSIDE RECORDS SUMMARY | 2025-02-08 00:11 | XMS_ITS | Encounter Summary ---
Author Organization [facility] Address [address] [place] [address] Care Team Providers Care Traffic Sign Erection Supervisor Name Role Phone Laura Aldrich MD Primary Care Provider [phone] Encounter Details Date Type Department Care Team (Late st Contact Info) Description 10/29/2024 MyChart Message [facility] [place] [address] [address] [place] [address] Laura Aldrich MD [address] [place] [address] 157 [place] [address] Test results Social History Tobacco Use Types Packs/Day Years Used Date Smoking Tobacco: Former Cigarettes 1 986 - 10/13/2019 Cigars Smokeless Tobacco: Never Comments:Occasional; dormitory counselor ed by Dr. Aldrich. Alcohol Use [...] Description 02/08/2025 4:20 PM CDT [facility] [address] [place], [place] [address] Laura Aldrich MD [facility] [facility] 157 [place] [address] documented as of this encounter Visit Diagnoses Not on filedocumented in this encounter Care Teams Traffic Sign Erection Supervisor Relationship Specialty Start Date End Date Laura Aldrich MD [facility] [facility] 157 [place] [address] PCP - General INTERNAL MEDICINE 05/06/24 documented as of this encounter
--- OUTSIDE RECORDS SUMMARY | 2025-02-08 00:11 | XMS_ITS | Clinical Summary ---
Author Organization [employer] [id number] [facility] Address [address] [place] [address] Care Team Providers Care Director Of Officiating Name Role Phone Unavailable Primary Care Provider [...] Gray MD - 06/07/2022 1:58 PM CDT [facility] Endoscopy Patient Name: Pedro Red Procedure [...] bowel preparation was evaluated using the BBPS ([place] Bowel Preparation Scale) with scores of: Right [...] pathology results. Procedure Code(s): --- Professional --- 43467, Colonoscopy, flexible; with removal of tumor(s), polyp(s), or other lesion(s) by snare technique CPT copyright 2020 [employer]. All rights reserved. The codes documented in this report are preliminary and upon box tender review may be revised to meet current compliance requirements. Rigoberto rGay MD 05/24/2022 2:46:15 PM This report has been signed electronically. Number of Addenda: [id number] [place] [address] Rigoberto Gray MD GI PROCEDURE ORDERABLES Final Result from Last 3 Months or Most Recently Relevant to Health Maintenance Insurance [facility] OPEN ACCESS HMO
--- OUTSIDE RECORDS SUMMARY | 2025-02-08 00:11 | XMS_ITS | Continuity of Care Document ---
Author Organization [facility] Address [address] [place] [address] Phone Care Team Providers Care Plaster Lather Name Role Phone Dow OD, Vinny Unavailable Unavailable Procedures Procedure Date Eye Exam, New Patient CL Replacement - Vistakon Disp W/BW Soft Tax - Medical Refraction Advance Directives Directive Yes / No Effective Date File Name No Information Encounters Encounter Description Practice Location Reason(s) For Visit Diagnoses Date Provider Providers Copied on Encounter [facility], [address], [place], [place], [id number], [place] tel:[phone] SEC [facility] No Information [address] OD Vinny. [address] , [address], [place], [address], [place]. tel:[phone] Family History Family Member Type Diagnosis Age At Onset No Information Payers Payer name Insurance type Covered libertarian ID Authoriza tiarabella(s) [place] Out Of [place] [id number] Social History Type Description Quantity Date Captured [...]
--- OUTSIDE RECORDS SUMMARY | 2025-02-08 00:11 | XMS_ITS | Encounter Summary ---
Author Organization [facility] Address [address] [place] [address] Care Team Providers Care Cell Assembly Pinner Name Role Phone Unknown, Notinfile Primary Care Provider Unavail able Reason for Visit * Reason Comments Elbow Pain Left elbow pain star kiki yesterday morning. Redness and swelling has been increasing. No TYL or IBU. Took Azithromycin to help. Was in [place]. 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 Took Azithromycin to help. Was in [facility]. ) History of Present Illness The patient, with a history of essential thrombocytopenia, presents with left elbow pain and swelling. The symptoms began after a long flight from [facility], where he was exposed to non-potable water [...] left documented in this encounter Care Teams Cell Assembly Pinner Relationship Specialty Start Date End Date Unknown, Notinfile PCP - General 02/07/25 documented as of this encounter
--- OUTSIDE RECORDS SUMMARY | 2025-02-08 00:11 | XMS_ITS | Referral Summary ---
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
--- OUTSIDE RECORDS SUMMARY | 2025-02-08 00:11 | XMS_ITS | Clinical Summary ---
Author Organization [address] [address] Care Team Providers Care Coin Counter And Wrapper Name Role Phone Unknown, Notinfile Primary Care Provider Unavail able Allergies No known active allergies Medications No known medications Active Problems No known active problems Encounters Date Type Department Care Team Description 02/07/2025 6:45 PM CDT Office Visit 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
--- OUTSIDE RECORDS SUMMARY | 2025-02-08 00:11 | XMS_ITS | Encounter Summary ---
Author Organization [facility] Address [address] [place] [address] Care Team Providers Care Senior Instructional Designer Name Role Phone Laura Aldrich MD Primary Care Provider Encounter Details Date Type Department Care Team (Late st Contact Info) Description 01/01/2025 MyChart Message [facility] [place] [address] [address] [place] [address] Laura Aldrich MD [address] [place] [address] 157 [place] [address] COVID Booster Social History Tobacco Use Types Packs/Day Years Used Date Smoking Tobacco: Former Cigarettes 1 986 - 10/13/2019 Cigars Smokeless Tobacco: Never Comments:Occasional; enrollment counselor ed by Dr. Aldrich. Alcohol Use [...] Description 02/08/2025 4:20 PM CDT [facility] [address] [place], [place] [address] Laura Aldrich MD 1188 [facility] 157 [place] [address] documented as of this encounter Visit Diagnoses Not on filedocumented in this encounter Care Teams Senior Instructional Designer Relationship Specialty Start Date End Date Laura Aldrich MD 1188 [facility] 157 [place] [address] PCP - General INTERNAL MEDICINE 05/06/24 documented as of this encounter
--- OUTSIDE RECORDS SUMMARY | 2025-02-08 00:11 | XMS_ITS | Encounter Summary ---
Author Organization [facility] Address [address] [place] [address] Care Team Providers Care Resource Room Teacher Name Role Phone Laura Aldrich MD Primary Care Provider [phone] Encounter Details Date Type Department Care Team (Late st Contact Info) Description 08/20/2024 MyChart Message Enc [place] [address] [address] [address] [place] [address] Laura Aldrich MD [address] [place] [address] 157 [place] [address] Raynaud's Social History Tobacco Use Types Packs/Day Years Used Date Smoking Tobacco: Former Cigarettes 1 986 - 10/13/2019 Cigars Smokeless Tobacco: Never Comments:Occasional; benefits counselor ed by Dr. Aldrich. Alcohol Use [...] 02/08/2025 4:20 PM CDT [facility] [address] [place], [place] [address] Laura Aldrich MD 1188 [facility] 157 [place] [address] documented as of this encounter Visit Diagnoses Not on filedocumented in this encounter Care Teams Resource Room Teacher Relationship Specialty Start Date End Date Laura Aldrich MD 1188 [facility] 157 [place] [address] PCP - General INTERNAL MEDICINE 05/06/24 documented as of this encounter
--- OUTSIDE RECORDS SUMMARY | 2025-02-08 00:11 | XMS_ITS | Clinical Summary ---
Author Organization [facility] Address [address] [place] [address] Care Team Providers Care News Production Supervisor Name Role Phone Unavailable Primary Care Provider Unavailabl e Source Comments [facility],non-owned Affiliates and Associated Physician Practices is amultiple site organization consisting of ambulatory clinics and hospital sitesin [place], [place], [place] and [place]. This disclosure is being madepursuant to the Care Everywhere program and may not contain all information available regarding this patient. 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
--- OUTSIDE RECORDS SUMMARY | 2025-02-08 00:11 | XMS_ITS | Encounter Summary ---
Author Organization [facility] Address [address] [place] [address] Care Team Providers Care Audio Installer Name Role Phone Laura Aldrich MD Primary Care Provider [phone] Encounter Details Date Type Department Care Team (Latest Contact Info) Description 07/16/2024 MyChart Message Enc [facility] - [place] [address] [address] [place], [place] [address] Laura Aldrich MD [address] [place] [address] 157 [place], [place] [phone] Blood Pressure Readings Social History Tobacco Use Types Packs/Day Years Used Date Smoking Tobacco: Former Cigarettes 1 986 - 10/13/2019 Cigars Smokeless Tobacco: Never Comments:Occasional; student success counselor ed by Dr. Aldrich. Alcohol Use [...] Description 02/08/2025 4:20 PM CDT [facility] - [address] [place], [place] [address] Laura Aldrich MD 1188 [facility] 157 [place] [address] documented as of this encounter Visit Diagnoses Not on filedocumented in this encounter Care Teams Audio Installer Relationship Specialty Start Date End Date Laura Aldrich MD 1188 [facility] 157 [place] [address] PCP - General INTERNAL MEDICINE 05/06/24 documented as of this encounter
--- OUTSIDE RECORDS SUMMARY | 2025-02-08 00:11 | XMS_ITS | Clinical Summary ---
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 Gender Identity Not on file Sexual Orientation Not on file Last Filed Vital Signs Vital Sign Reading Time Taken Comments Blood Pressure 160/92 11/02/2024 7:55 AM ANIMAL HERDER Pulse 81 11/02/2024 7:55 AM ANIMAL HERDER Temperature 36.6 C (97.8 F) 11/02/2024 7:55 AM ANIMAL HERDER Respiratory Rate 18 11/02/2024 7:55 AM ANIMAL HERDER Oxygen Saturation 81% 11/02/2024 7:55 AM ANIMAL HERDER Inhaled Oxygen Concentration - - Weight 81.3 kg (179 lb 3.2 oz) 11/02/2024 7:55 A M ANIMAL HERDER Height 170.2 cm (5' 7 ) 11/02/2024 7:55 AM ANIMAL HERDER Body Mass Index 28.07 11/02/2024 7:55 AM ANIMAL HERDER Plan of Treatment Upcoming Encounters Date Type Department Care Team (Late st Contact Info) Description 02/08/2025 8:30 AM CDT Lab [facility] [address] [phone] Lab, Cc [facility] 05/03/2025 8:00 AM CDT Office Visit [facility] [address] [phone] Bravo Weathers, DO [address] [place] [phone] 05/03/2025 8:00 AM CDT Lab [facility] [address] [id number] Lab, Cc [facility] Health Maintenance Due Date Last [...] LDH 139(L) 140 - 271 U/L [facility] Blood 01/25/2025 10:4 0 AM CDT Narrative [facility] - 01/25/2025 11:28 AM CDT Release to patient->Immediate us Bravo Weathers DO CHEMISTRY ORDERABLES Final Res ult [facility] [place] [address], [place] [phone] * (ABNORMAL) COMPLETE BLOOD COUNT (CBC) WITH DIFF (01/25/2025 10:40 AM CDT) WBC 9.1 4.0 - 10.0 10*3/uL [facility] HGB 16.0 13.7 - 17.5 g/dL [facility] HCT 47.8 40.1 - 51.0 % [facility] PLT 453(H) 163 - 369 10*3/uL [facility] MPV 8.9(L) 9.4 - 12.4 fL [facility] RBC 5.11 4.63 - 6.08 10*6/uL [facility] MCV 94 79 - 95 fL [facility] MCH 31.3 25.6 - 32.2 pg [facility] MCHC 33.5 32.2 - 36.5 g/dL [facility] RDW 14.3 11.6 - 14.4 % [facility] Absolute Neutrophil Count 7,173 cells/uL [facility] Absolute Seg Count 7,173(H) 1,440 - 6,600 cells/uL [facility] Absolute Lymph Count 545(L) 760 - 4,000 cells/uL [facility] Absolute [place] Count 817 160 - 1,200 cells/uL [facility] Absolute Eos Count 454(H) 0 - 300 cells/uL [facility] Segmented Neutrophils 79(H) 36 - 66 % [facility] Lymphocytes 6(L) 19 - 40 % [facility] Monocytes 9 4 - 12 % [facility] Eosinophils 5(H) 0 - 3 % [facility] Myelocytes 1 0 - 2 % [facility] WBC Estimate Normal [facility] DOUBLE [facility] Platelet Estimate High [facility] DOUBLE BASS [facility] RBC Morphology Normal [facility] Blood 01/25/2025 10:4 0 AM CDT Narrative [facility] - 01/25/2025 11:55 AM CDT Release to patient->Immediate us Bravo Weathers DO HEMATOLOGY ORDERABLES Final Re sult [facility] [address] [place] [address], from Last 3 Months Insurance [facility] Care Teams Conditioning Room Worker Relationship Specialty Start Date End Date Laura Adlrich MD [address] [facility] [address] [place] [address] PCP - General Internal Medicine 08/16/24 Bravo Weathers DO [address] [place] [phone] Consulting Physician Oncology 08/16/24
--- OUTSIDE RECORDS SUMMARY | 2025-02-08 00:11 | XMS_ITS | Encounter Summary ---
Author Organization [facility] Address [address] [place] [address] Care Team Providers Care Fisher Trammel Net Name Role Phone Laura Aldrich MD Primary Care Provider [phone] Encounter Details Date Type Department Care Team (Latest Contact Info) Description 12/13/2024 MyChart Message [facility] [address] [address] [place] [address] Laura Aldrich MD [address] [place] [address] 157 [place], [place] [phone] BP still running a little high Social History Tobacco Use Types Packs/Day Years Used Date Smoking Tobacco: Former Cigarettes 1 986 - 10/13/2019 Cigars Smokeless Tobacco: Never Comments:Occasional; apprise counselor ed by Dr. Aldrich. Alcohol Use [...] Description 02/08/2025 4:20 PM CDT [facility] [address] [place] [address] Laura Aldrich MD [address] [facility] 157 [place] [address] documented as of this encounter Visit Diagnoses Not on filedocumented in this encounter Care Teams Fisher Trammel Net Relationship Specialty Start Date End Date Laura Aldrich MD 118[address] [facility] 157 [place] [address] PCP - General INTERNAL MEDICINE 05/06/24 documented as of this encounter
--- OUTSIDE RECORDS SUMMARY | 2025-02-08 00:12 | XMS_ITS | Clinical Summary ---
Author Organization [facility] Address [address] [place] [address] Care Team Providers Care Manager Interventional Name Role Phone Laura Aldrich MD Primary Care Provider [phone] Allergies No known active allergies Medications doxycycline [...] Type Department Care Team Description 01/27/2025 Telephone [facility] [address] [place] [address] Laura Aldrich MD Lab Order 01/26/2025 MyChart Message Enc [facility] [address] [place] [address] Laura Aldrich MD Blood test results 01/20/2025 2:00 PM CDT Office Visit [facility] [address] [place] [address] Paulina Ball, SET UP / OPERATOR Edema (Kevin legs) 01/20/2025 Travel 01/18/2025 MyChart Message Enc [facility] [address] [place] [address] Laura Aldrich MD Ankle swelling 01/03/2025 Scan The 19th Floor INFO SRVCS Scanned, [facility] 01/03/2025 MyChart Message Enc [facility] [address] [place] [address] Laura Aldrich MD Vaccinations 01/01/2025 MyChart Message Enc [facility] [address] [place] [address] Laura Aldrich MD COVID Booster 12/13/2024 [facility] [address] [place] [address] Laura Aldrich MD BP still running a little high 11/28/2024 Billettohart Message Enc [facility] Mult[facility] - [place] [address] [place] [address] Laura Aldrich MD Appointment January 31 from [...] Description 02/08/2025 4:20 PM CDT Office Visit [facility] Mult[facility] - [place] [address] [address] [place], [place] [id number] Laura Aldrich MD [address] [place] [address] [address] [place] [address] Health Maintenance Due Date Last Done Comments Zoster Vaccines (1 of 2) 2015 PHQ-2 (Physician [place]) 10/13/2024 06/28/2024 COVID-19 Vaccine ( season) 2025 [...] VE NON-REACT GIORGIO 07/12/2024 9:27 PM CDT [facility] Comment: ANTIBODIES TO HCV NOT DETECTED. DOES NOT EXCLUDE THE POSSIBILITY OF EXPOSURE TO HCV. 07/12/2024 8:10 AM CDT Laura Aldrich MD LABORATORY Final Result [facility] [address] [place] [address], [id number] * COLONOSCOPY GENERIC (SCAN ORDER) (06/07/2022) 06/07/2022 us [facility] Scanned SCANNING Final Resu lt from Last 3 Months or Most Recently Relevant to Health Maintenance Insurance [facility] Care Teams Manager Interventional Relationship Specialty Start Date End Date Laura Aldrich MD [address] [address] PCP - General INTERNAL MEDICINE 05/06/24
--- OUTSIDE RECORDS SUMMARY | 2025-02-08 00:12 | XMS_ITS | Encounter Summary ---
Author Organization [facility] Address [address] [place] [address] Care Team Providers Care Policewoman Name Role Phone Laura Aldrich MD Primary Care Provider [phone] Encounter Details Date Type Department Care Team (Late st Contact Info) Description 07/09/2024 MyChart Message Enc [place] [address] [address] [place] [address] Laura Aldrich MD [address] [place] [address] [address] [place] [address] Vaccinations Social History Tobacco Use Types Packs/Day Years Used Date Smoking Tobacco: Former Cigarettes 1 986 - 10/13/2019 Cigars Smokeless Tobacco: Never Comments:Occasional; director of group counseling program ed by Dr. Aldrich. Alcohol Use Standard [...] Description 02/08/2025 4:20 PM CDT Office Visit [address] [place], [place] [address] Laura Aldrich MD [address] [facility] [address] [place] [address] documented as of this encounter Visit Diagnoses Not on filedocumented in this encounter Care Teams Policewoman Relationship Specialty Start Date End Date Laura Aldrich MD [address] [facility] [address] [place] [address] PCP - General INTERNAL MEDICINE 05/06/24 documented as of this encounter
--- OUTSIDE RECORDS SUMMARY | 2025-02-08 00:12 | XMS_ITS | Encounter Summary ---
Author Organization [facility] Address [address] [place] [address] Care Team Providers Care Needle Loom Operator Name Role Phone Laura Aldrich MD Primary Care Provider [phone] Encounter Details Date Type Department Care Team (Latest Contact Info) Description 08/02/2024 MyChart Message [facility] - [place] [address] [address] [place], [place] [id number] Laura Aldrich MD [address] [place] [address] [address] [place], [place] [id number] updated BP report Social History Tobacco Use Types Packs/Day Years Used Date Smoking Tobacco: Former Cigarettes 1 986 - 10/13/2019 Cigars Smokeless Tobacco: Never Comments:Occasional; certified travel counselor ed by Dr. Aldrich. Alcohol Use [...] Description 02/08/2025 4:20 PM CDT [facility] - [address] [place] [address] Laura Aldrich MD [address] [facility] [address] [place] [address] documented as of this encounter Visit Diagnoses Not on filedocumented in this encounter Care Teams Needle Loom Operator Relationship Specialty Start Date End Date Laura Aldrich MD [address] [facility] [address] [place] [address] PCP - General INTERNAL MEDICINE 05/06/24 documented as of this encounter
--- OUTSIDE RECORDS SUMMARY | 2025-02-08 00:12 | XMS_ITS | Encounter Summary ---
Author Organization [facility] Address [address] [place] [address] Care Team Providers Care Carcass Trimmer Name Role Phone Laura Aldrich MD Primary Care Provider [phone] Encounter Details Date Type Department Care Team (Latest Contact Info) Description 08/07/2024 MyChart Message Enc [place] [address] [address] [place], [place] [address] Laura Aldrich MD [address] [place] [address] [address] [place], [place] [id number] losartan question Social History Tobacco Use Types Packs/Day Years Used Date Smoking Tobacco: Former Cigarettes 1 986 - 10/13/2019 Cigars Smokeless Tobacco: Never Comments:Occasional; student loan counselor ed by Dr. Aldrich. Alcohol Use [...] Description 02/08/2025 4:20 PM CDT [facility] [address] [place] [address] Laura Aldrich MD [address] [facility] [address] [place] [address] documented as of this encounter Visit Diagnoses Not on filedocumented in this encounter Care Teams Carcass Trimmer Relationship Specialty Start Date End Date Laura Aldrich MD [address] [facility] [address] [place] [address] PCP - General INTERNAL MEDICINE 05/06/24 documented as of this encounter
--- NOTE | 2025-02-08 00:54 | ED.SKABFB ---
HPI - Skin/Abscess/Foreign Bdy General Chief complaint: Skin/Abscess/Foreign Body Stated complaint: inflammation of the elbow Time Seen by Provider: 02/08/25 00:02 History of Present Illness HPI narrative: 59-year-old male presenting to the emergency department with left upper extremity warmth, redness and pain and the left elbow region that spread proximally to his mid upper arm and down into his mid forearm region. Does not remember any traumas but states that he was flying home from [place] yesterday and he noticed it started on the plane. Thinks there was mosquitos on the plane but does not remember any scratches or bites. No systemic features such as nausea, vomiting, abdominal pain, fever, chills. 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 Denies any recent illnesses or other hospital visits. No recent antibiotic use. He has a primary care provider follow-up appointment tomorrow afternoon. Related Data Allergies Allergy/AdvReac Type Severity Reaction Status Date / Time No Known Allergies Allergy Unverified 02/07/25 19:55 Review of Systems Review of Systems: As reviewed above in HPI [facility] Family History Family History Mother Family history of thyroid disease Father Family history of cardiovascular disease Grandparent Family history of cardiovascular disease Malignant neoplasm of prostate Family history of malignant neoplasm of breast Family history of malignant neoplasm of urinary bladder Social History Social History Smoking status: Former smoker Smoking end date: 10/13/85 Alcohol intake: current Exam Narrative: GENERAL: [Well-appearing, well-nourished, and in no acute distress.] HEAD: [Normocephalic, atraumatic.] EYES: [PERRLA and EOMI.] ENT: Nares clear, no rhinorrhea or epistaxis. Mucous membranes moist. NECK: Supple. CHEST: [Clear to auscultation. No respiratory distress.] HEART: [Regular rate and rhythm]. No murmur heard. [Normal peripheral pulses.] ABDOMEN: [Soft, nondistended], [nontender], [No rigidity or guarding] EXTREMITIES: Warmth, redness and swelling around the left elbow tracking proximally towards the middle of the upper arm and towards the middle of the forearm. No streakiness or vasculitis. No tenderness with palpation. No fluctuance masses. Minimal olecranon effusion identified. No restricted range of motion to passive or active range. No identifiable new lesions, previous skin biopsy site without any new irritation. No punctate wounds. No drainage or fluid collections. SKIN: Warm, dry, no rash. NEURO: [No focal deficits]. Alert and oriented [x3.] PSYCH: [Normal mood and affect.] Course Vital Signs Vital signs: Vital Signs Temperature 37.0 C 02/07/25 19:59 Pulse Rate 90 02/07/25 19:59 Respiratory Rate 16 02/07/25 19:59 Blood Pressure 154/89 H 02/07/25 19:59 Pulse Oximetry 100 02/07/25 19:59 Temperature 37.0 C 02/07/25 19:59 Pulse Rate 80 02/08/25 01:16 Respiratory Rate 18 02/08/25 01:16 Blood Pressure 122/82 02/08/25 01:16 Pulse Oximetry 100 02/08/25 01:16 MDM - Skin/Abscess/Foreign Bdy MDM Narrative Medical decision making narrative: 59-year-old male presenting with left upper extremity pain, warmth and swelling around the olecranon and left elbow. He has normal vital signs and is afebrile. He recently got off a plane from [place] and states that the symptoms developed on the morning flight. No fever chills. No systemic symptoms otherwise. Does not remember any trauma, scratches, bites. No other signs or symptoms of rash anywhere else. No recent antibiotic use. His examination is consistent with potential cellulitis versus septic bursitis verses very unlikely septic joint given his normal range of motion and no significant pain or effusion or any signs of trauma or skin breakdown. Will obtain inflammatory markers including ESR, CRP and white count. X-ray was obtained for further evaluation. Patient likely will be able to discharge home on antibiotics for cellulitis and follow up with his regular doctor tomorrow morning. Laboratory studies show minor elevations in inflammatory markers. Minor leukocytosis. He is afebrile. Suspicion presently is for cellulitis given clinical examination and labs. X-ray shows no osseous abnormalities. He was given a dose of Bactrim and safely discharged home at this time with PCP follow-up tomorrow afternoon. Prescription sent for Bactrim and return precautions provided. Medical Records Attestation: I reviewed the patient's medical records. Lab Data Attestation: I reviewed the patient's lab results. 02/08/25 01:07 02/08/25 01:07 Labs: Lab Results 02/08/25 Range/Units 01:07 WBC 12.1 H (4.5-10.0) K/mm3 RBC 4.90 (4.6-6.20) M/mm3 Hgb 15.5 (14.0-18.0) g/dL Hct 46.3 (42.0-52.0) % MCV 94.5 (80-100) fl MCH 31.6 (26-34) pg MCHC 33.5 (32-36) g/dl RDW 14.3 (11.5-14.5) % Plt Count 484 H (150-375) k/mm3 MPV 9.5 (7.4-10.4) fl Immature Gran % (Auto) Not Reportable Neut % (Auto) Not Reportable Lymph % (Auto) Not Reportable [place] % (Auto) Not Reportable Eos % (Auto) Not Reportable Baso % (Auto) Not Reportable Lymph # (Auto) Not Reportable [place] # (Auto) Not Reportable Eos # (Auto) Not Reportable Baso # (Auto) Not Reportable Abs Immat Gran (auto) Not Reportable Absolute Neuts (auto) Not Reportable Absolute Nucleated RBC Not Reportable Total Counted 100 Neutrophils % (Manual) 75 H (46-73) % Band Neutrophils % 9 H (0-6) % Lymphocytes % (Manual) 9.0 L (18-44) % Monocytes % (Manual) 6 (3-9) % Eosinophils % (Manual) 1 (0-4) % Nucleated RBC % Not Reportable Abs Neuts (Manual) 10.16 H (1.3-6.7) K/mm3 Abs Lymphs (Manual) 1.08 L (1.1-4.5) K/mm3 Abs Monocytes (Manual) 0.72 (0.1-0.90) K/mm3 Absolute Eos (Manual) 0.12 (0.02-0.50) K/mm3 Platelet Estimate Increased (Adequate) Large Platelets Present Schistocytes None seen ESR 24 H (0-20) mm/hr Sodium 130 L (137-145) mmol/L Potassium 4.0 (3.4-5.0) mmol/L Chloride 94 L (98-107) mmol/L Carbon Dioxide 26 (22-30) mmol/L Anion Gap 10 (4-12) mmol/L BUN 14 (9-20) mg/dL Creatinine 0.78 (0.7-1.3) mg/dL Estim Creat Clear Calc 83 ml/min Estimated GFR > 60 (59 - ) Glucose 106 (65-110) mg/dL Uric Acid 5.5 (3.5-8.5) mg/dL Calcium 9.5 (8.4-10.2) mg/dL C-Reactive Protein 4.8 H (<1.0) mg/dL Imaging Data Attestation: I personally reviewed and interpreted this imaging study as follows: My impression: No acute osseous abnormality/fracture/dislocation no significant swelling or joint effusion Discharge Plan Discharge Clinical Impression: Cellulitis Patient Disposition: Home Condition: Stable Instructions: Antibiotic Form, Cellulitis (ED) Additional Instructions: Your symptoms are likely secondary to cellulitis which is a superficial soft tissue infection. Will start you on oral antibiotics and refer to your primary care provider for repeat evaluation. Take the antibiotics twice daily for the next 7 days. Return with any worsening concerns such as developing fevers, developing restricted range of motion, worsening swelling or spread of the rash. Patient Language: Mongolian Prescriptions: New sulfamethoxazole-trimethoprim [Bactrim DS] 800-160 mg tablet 1 tablet PO Q12H Qty: 14 0RF Follow-up/Referrals: Valdemar,MD Laura [Primary Care Provider] - Time of Disposition: 02:42
[2025-02-08] MEDS: KETOROLAC 30 MG/ML VIAL (*BKC) 15 MG IM (01:09)
[2025-02-08 01:16] VITALS: BP 122/82; PULSE 80; RESP 18; O2SAT 100
--- NOTE | 2025-02-08 01:18 | PC.NURSE ---
MD verbally okayed IM shot of toradol instead of IV push.
[2025-02-08 01:26] LABS: Anion Gap 10 mmol/L (4-12); Blood Urea Nitrogen 14 mg/dL (9-20); CRP 4.8 mg/dL (<1.0); Calcium 9.5 mg/dL (8.4-10.2); Carbon Dioxide 26 mmol/L (22-30); Chloride 94 mmol/L (98-107); Estimated CRCL calculation 83 ml/min; Estimated Glomerular Filt Rate > 60; Glucose 106 mg/dL (65-110); Sodium 130 mmol/L (137-145); Uric Acid 5.5 mg/dL (3.5-8.5)
[2025-02-08 01:51] LABS: Hematocrit 46.3 % (42.0-52.0); Hemoglobin 15.5 g/dL (14.0-18.0); Mean Corpuscular HGB Conc 33.5 g/dl (32-36); Mean Corpuscular Hemoglobin 31.6 pg (26-34); Mean Corpuscular Volume 94.5 fl (80-100); Mean Platelet Volume 9.5 fl (7.4-10.4); Platelet Count Result 484 k/mm3 (150-375); Red Cell Distribution Width 14.3 % (11.5-14.5); White Blood Count 12.1 K/mm3 (4.5-10.0)
[2025-02-08 02:03] LABS: Band Neutrophils Percent 9 % (0-6); Eosinophils Absolute Manual 0.12 K/mm3 (0.02-0.50); Eosinophils Percent Manual 1 % (0-4); Lymphocytes Absolute Manual 1.08 K/mm3 (1.1-4.5); Monocytes Absolute Manual 0.72 K/mm3 (0.1-0.90); Monocytes Percent Manual 6 % (3-9); Neutrophils Absolute Manual 10.16 K/mm3 (1.3-6.7); Neutrophils Percent Manual 75 % (46-73); Total Cells Counted 100
[2025-02-08 02:04] LABS: Large Platelets Present; Platelet Estimate Increased (Adequate); Schistocytes None Seen
[2025-02-08 02:37] LABS: Erythrocyte Sedimentation Rate 24 mm/hr (0-20)
[2025-02-08] MEDS: SULFAMETHOXAZOLE/TRIMETHOPRIM 800/160 MG DS TABLET 1 TAB PO (02:56)
== END 2025-02-08 02:58 | disposition home or self-care (01) ==
PROVIDERS: Emergency Provider Student in an Organized Health Care Education/Training Program; PCP Internal Medicine
DX: L03.114 Cellulitis of left upper limb (principal)
CPT/HCPCS: 36415; 73070; 80048; 84550; 85025; 85652; 86140; 96372; 99283; A9270; J1885